=== PATIENT | female | born 1980 | race Caucasian/White ===

== ENCOUNTER 2017-07-04 12:44 | Emergency (ER) | payer OTHER ==
[2017-07-04 13:12] VITALS: BP 120/81
--- NOTE | 2017-07-04 14:41 | UC ---
Minor Trauma HPI - HPI Summary HPI Summary: 36 yo female was walking quickly down a hallway at work slipped on water landed on right side c/o right back>right elbow pain hx of back problems in past hx of right elbow tendonitis - History of Current Complaint Chief Complaint: UCUpperExtremity Stated Complaint: BACK AND ARM INJURY Time Seen by Provider: 07/04/17 14:29 Hx Obtained From: Patient Hx Last Menstrual Period: 06/25/2017 Onset/Duration: Sudden Onset Onset Of Pain: Immediate Severity Initially: Severe Severity Currently: Severe Pain Intensity: 7 Pain Scale Used: 0-10 Numeric Mechanism Of Injury: Fall From A Standing Position Aggravating Factor(s): Movement Alleviating Factor(s): Other: - tramadol - Allergies/Home Medications Allergies/Adverse Reactions: Allergies Allergy/AdvReac Type Severity Reaction Status Date / Time MS Penicillins [Penicillins] Allergy Severe Shortness Verified 07/04/17 12:59 of Breath MS Sumatriptan [From Imitrex] Allergy Severe Shortness Verified 07/04/17 12:59 of Breath MS Carbamazepine Allergy Rash And Verified 07/04/17 12:59 [From Tegretol] Itching Home Medications: Home Medications clonazePAM TAB(*) [Klonopin TAB(*)] 0.5 mg PO BID PRN MDD 1 07/04/17 [History Confirmed 07/04/17] PMH/Surg Hx/FS Hx/Imm Hx Previously Healthy: Yes Psychological History: Bipolar Disorder - Surgical History Surgical History: Yes Surgery Procedure, Year, and Place: Pt had a on - Social History Alcohol Use: Rare Substance Use Type: None Smoking Status (MU): Former Smoker Type: Cigarettes Amount Used/How Often: denies currently smoking/ smoked one cigarette one Have You Smoked in the Last Year: Yes When Did the Patient Quit Smoking/Using Tobacco: august 06, 8 years ago - Immunization History Most Recent Influenza Vaccination: 2015 Most Recent Tetanus Shot: 2017 Most Recent Pneumonia Vaccination: Never Review of Systems Constitutional: Negative Skin: Negative Eyes: Negative ENT: Negative Respiratory: Negative Cardiovascular: Negative Gastrointestinal: Negative Genitourinary: Negative Motor: Negative Neurovascular: Negative Musculoskeletal: Arthralgia Neurological: Negative Psychological: Negative Is Patient Immunocompromised?: No All Other Systems Reviewed And Are Negative: Yes Physical Exam Triage Information Reviewed: Yes Appearance: Well-Appearing, No Pain Distress, Well-Nourished Vital Signs: Initial Vital Signs Temp 98.2 F 07/04/17 13:02 Pulse 79 07/04/17 13:02 Resp 17 07/04/17 13:02 BP 120/81 07/04/17 13:02 Pulse Ox 100 07/04/17 13:02 Eyes: Positive: Conjunctiva Clear ENT: Positive: Hearing grossly normal. Negative: Nasal congestion, Nasal drainage, Trismus, Muffled voice, Hoarse voice Neck: Positive: Supple, Nontender Respiratory: Positive: Lungs clear, Normal breath sounds, No respiratory distress Cardiovascular: Positive: RRR, No Murmur Abdomen Description: Positive: Nontender. Negative: CVA Tenderness (R), CVA Tenderness (L) Bowel Sounds: Positive: Present Musculoskeletal: Positive: ROM Intact, No Edema Neurological: Positive: Alert Psychological Exam: Normal Skin Exam: Normal Diagnostics - Radiology No standard instances Xray Interpretation: No Acute Changes - right rib series Radiology Interpretation Completed By: Radiologist Minor Trauma Course/Dx - Differential Dx/Diagnosis Provider Diagnoses: right elbow and rib contusions. back strain. fall Discharge - Discharge Plan Condition: Stable Disposition: HOME Prescriptions: Naproxen Sodium [Naproxen Sodium 500 MG TAB] 500 mg PO BID PRN #30 tab PRN Reason: Pain traMADol TAB* [Ultram*] 50 mg PO Q6HR PRN #15 tab MDD 4 PRN Reason: Pain Forms: *Work Release Referrals: Prashant Rivas MD [Primary Care Provider] - Additional Instructions: rest recheck this weekend if you feel unable to return to full duty recheck next in one week if not 100% back to normal Images Front/Back of Body, Lg ([place]): 1 - tender 2 - tender lateral epicondyle. full ROM
--- NOTE | 2017-07-04 15:13 | RAD ---
HISTORY: Subacute trauma, right-sided rib pain COMPARISONS: None VIEWS: 7, Frontal view of the chest with frontal and oblique views of the right hemithorax. FINDINGS: There is no displaced rib fracture or pneumothorax. The visualized lungs are clear. IMPRESSION: NO DISPLACED RIB FRACTURE OR PNEUMOTHORAX
== END 2017-07-04 16:19 | disposition home or self-care (01) ==
LOC: UCEAST 12:44
DX: S50.01XA Contusion of right elbow, initial encounter (principal); X58.XXXA Exposure to other specified factors, initial encounter; S20.211A Contusion of right front wall of thorax, initial encounter; S23.3XXA Sprain of ligaments of thoracic spine, initial encounter; Z87.891 Personal history of nicotine dependence; W01.0XXA Fall on same level from slipping, tripping and stumbling without subsequent striking against object, initial encounter; Y92.89 Other specified places as the place of occurrence of the external cause
CPT/HCPCS: 99212; G0463

== ENCOUNTER 2017-10-10 20:37 | Inpatient (IN) | payer BC, OTHER ==
[2017-10-10] MEDS ORDERED: diPHENhydraMINE IV* 50 MG/ML 1 ml VIAL (BENADRYL) IM ONE (21:49)
[2017-10-10] MEDS ORDERED: Haloperidol INJ IV/IM* 5 MG/ML AMP IM ONE (21:49)
[2017-10-10] MEDS ORDERED: LORazepam INJ* 2 MG/ML 1 ML VIAL IM ONE (21:49)
[2017-10-11 00:59] LABS: ABS Basophils 0.1 10^3/ul (0-0.2); ABS Eosinophils 0 10^3/ul (0-0.6); ABS Lymphocytes 2.4 10^3/ul (1.0-4.8); ABS Monocytes 0.9 10^3/ul (0-0.8); ABS Neutrophils 5.3 10^3/ul (1.5-7.7); ABS Nucleated RBC 0 10^3/ul; Eosinophil % 0.4 % (0-6); Hematocrit 37 % (35-47); Hemoglobin 12.6 g/dl (12.0-16.0); Mean Corpuscular HGB Conc 34 g/dl (31-36); Mean Corpuscular Hemoglobin 32 pg (27-31); Mean Corpuscular Volume 94 fL (80-97); Mean Platelet Volume 8.4 um3 (7.4-10.4); Nucleated Red Blood Cells % 0.1; Platelet Count 242 10^3/ul (150-450); Red Blood Count 3.95 10^6/ul (4.0-5.4); Red Cell Distribution Width 13 % (10.5-15); White Blood Count 8.6 10^3/ul (3.5-10.8)
[2017-10-11 01:17] LABS: EGFR Non-African American 56.5 (>60)
--- NOTE | 2017-10-11 05:59 | ED ---
Mauro Lugo Rebecca, scribed for Tre Watson MD on 10/10/17 at 2131 . Psychiatric Complaint - HPI Summary HPI Summary: Pt is a 37 y/o F BIB police as a 941 after being found in the road. Upon arrival in the ED pt is hallucinating, having conversations with individuals who are not present, and having disconnected thoughts and speech. Oriented to person. Level 5 caveat - history is unobtainable due to current presentation. - History Of Current Complaint Chief Complaint: EDMentalHealth Time Seen by Provider: 10/10/17 20:53 Hx Obtained From: Medical Records Hx From Patient Unobtainable Due To: Other - Current presentation Hx Last Menstrual Period: 06/25/2017 Onset/Duration: Still Present Associated Signs And Symptoms: Positive: Hallucinating Related History: Positive For: Prior Psychiatric Issues - Anxiety, bipolar, acute psychosis - Allergies/Home Medications Allergies/Adverse Reactions: Allergies Allergy/AdvReac Type Severity Reaction Status Date / Time carbamazepine Allergy Rash And Verified 10/11/17 05:02 Itching Penicillins Allergy Shortness Verified 10/11/17 05:02 of Breath sumatriptan Allergy Shortness Verified 10/11/17 05:02 of Breath Home Medications: Home Medications clonazePAM TAB(*) [KlonoPIN TAB(*)] 0.5 mg PO BID PRN MDD 2 tablets 10/10/17 [ History Confirmed 10/10/17] PMH/Surg Hx/FS Hx/Imm Hx Endocrine/Hematology History: Denies: Hx Diabetes, Hx Thyroid Disease Cardiovascular History: Denies: Hx Hypertension Respiratory History: Reports: Hx Asthma - exercise, Hx Pneumonia Denies: Hx Chronic Obstructive Pulmonary Disease (COPD) GI History: Reports: Hx Gastroesophageal Reflux Disease - when I was 18 Denies: Hx Ulcer Sensory History: Reports: Hx Contacts or Glasses - reading glasses Opthamlomology History: Reports: Hx Contacts or Glasses - reading glasses Neurological History: Reports: Hx Headaches, Hx Migraine - "I have a substantial amount of calcium growing in my brain" Psychiatric History: Reports: Hx Anxiety, Hx Inpatient Treatment, Hx Community Mental Health Tx, Hx Bipolar Disorder, Other Psychiatric Issues/Disorders - hx of acute psychosis Denies: Hx Eating Disorder, Hx of Violent Episodes Against Others - Surgical History Surgery Procedure, Year, and Place: Pt had a on Infectious Disease History: Unable to Obtain/Confirm Infectious Disease History: Denies: Hx Hepatitis, Hx Human Immunodeficiency Virus (HIV), Traveled Outside the [place] in Last 30 Days - Family History Known Family History: Positive: Other - Anxiety, depression, alcohol abuse - Social History Alcohol Use: Rare Substance Use Type: Reports: None Smoking Status (MU): Former Smoker Type: Cigarettes Amount Used/How Often: denies currently smoking/ smoked one cigarette one Have You Smoked in the Last Year: Yes Review of Systems Negative: Fever Positive: Other - Hallucinating, disconnected thoughts and speech All Other Systems Reviewed And Are Negative: No - Comments Additional Review of Systems Comments: Level 5 caveat due to current presentation of symptoms. Physical Exam - Summary Physical Exam Summary: General: well-appearing, no pain distress Skin: color reflects adequate perfusion, dry Head: normal Eyes: EOMI, TAJ ENT: normal Neck: supple, nontender Respiratory: no respiratory distress Cardiovascular: RRR Musculoskeletal: normal, moves all extremities in a grossly normal manner Neurological: sensory/motor intact, alert and oriented to person Psychological: delusional speech, talking about individuals not here Triage Information Reviewed: Yes Vital Signs On Initial Exam: Initial Vitals Temp Pulse Resp BP Pulse Ox 98.8 F 121 22 140/106 96 10/10/17 20:43 10/10/17 20:43 10/10/17 20:43 10/10/17 20:43 10/10/17 20:43 Vital Signs Reviewed: Yes Completion Of Physical Exam Limited Due To: Other - Level 5 caveat - current presentation of symptoms. Diagnostics - Vital Signs Vital Signs Temp Pulse Resp BP Pulse Ox 10/10/17 20:43 98.8 F 121 22 140/106 96 - Laboratory Lab Results: Lab Results 10/11/17 10/11/17 Range/Units 00:48 00:49 WBC 8.6 (3.5-10.8) 10^3/ul RBC 3.95 L (4.0-5.4) 10^6/ul Hgb 12.6 (12.0-16.0) g/dl Hct 37 (35-47) % MCV 94 (80-97) fL MCH 32 H (27-31) pg MCHC 34 (31-36) g/dl RDW 13 (10.5-15) % Plt Count 242 (150-450) 10^3/ul MPV 8.4 (7.4-10.4) um3 Neut % (Auto) 60.8 (38-83) % Lymph % (Auto) 28.0 (25-47) % [place] % (Auto) 10.1 H (0-7) % Eos % (Auto) 0.4 (0-6) % Baso % (Auto) 0.7 (0-2) % Absolute Neuts (auto) 5.3 (1.5-7.7) 10^3/ul Absolute Lymphs (auto) 2.4 (1.0-4.8) 10^3/ul Absolute Monos (auto) 0.9 H (0-0.8) 10^3/ul Absolute Eos (auto) 0 (0-0.6) 10^3/ul Absolute Basos (auto) 0.1 (0-0.2) 10^3/ul Absolute Nucleated RBC 0 10^3/ul Nucleated RBC % 0.1 Sodium 139 (139-145) mmol/L Potassium 3.3 L (3.5-5.0) mmol/L Chloride 105 (101-111) mmol/L Carbon Dioxide 25 (22-32) mmol/L Anion Gap 9 (2-11) mmol/L BUN 14 (6-24) mg/dL Creatinine 1.09 H (0.51-0.95) mg/dL Est GFR ( Amer) 72.6 (>60) Est GFR (Non-Af Amer) 56.5 (>60) BUN/Creatinine Ratio 12.8 (8-20) Glucose 99 (70-100) mg/dL Calcium 9.2 (8.6-10.3) mg/dL Total Bilirubin 0.60 (0.2-1.0) mg/dL AST 40 H (13-39) U/L ALT 24 (7-52) U/L Alkaline Phosphatase 47 (34-104) U/L Total Protein 7.4 (6.4-8.9) g/dL Albumin 4.6 (3.2-5.2) g/dL Globulin 2.8 (2-4) g/dL Albumin/Globulin Ratio 1.6 (1-3) TSH 2.72 (0.34-5.60) mcIU/mL Beta HCG, Quant < 0.60 mIU/mL Salicylates < 2.50 (<30) mg/dL Acetaminophen < 15 mcg/mL Serum Alcohol < 10 (<10) mg/dL Result Diagrams: 10/11/17 00:48 10/11/17 00:49 Lab Statement: Any lab studies that have been ordered have been reviewed, and results considered in the medical decision making process. Course/Dx - Course Course Of Treatment: MHE AND DISPOSITION PENDING AT SHIFT CHANGE Assessment/Plan: Medications reviewed. Allergies noted. - Differential Dx/Clinical Impression Provider Diagnosis: Mental health problem Discharge - Sign-Out/Discharge Documenting (check all that apply): Sign-Out Patient Signing out patient TO: Jules Domingo - Awaiting health clearance and MHE - Discharge Plan Condition: Stable Dis[place] [place] [place]errals: Prashant Rivas MD [Primary Care Provider] - - Billing Disposition and Condition Condition: STABLE Disposition: [facility] [place] The documentation as recorded by the Mauro villarreal Rebecca accurately reflects the service I personally performed and the decisions made by me, Tre Watson MD.
[2017-10-11] MEDS ORDERED: chlorproMAZINE TAB* 100 MG PO PRN (12:59)
[2017-10-11] MEDS ORDERED: chlorproMAZINE TAB* 50 MG PO PRN (14:00)
[2017-10-12] MEDS: Acetaminophen TAB* 325 MG PO PRN ×3 (04:03→14:03)
[2017-10-12] MEDS: Vitamin THERAPEUTIC TAB PO SCH (09:16)
[2017-10-12] MEDS: Prazosin CAP* 1 MG PO SCH ×2 (12:11→21:09)
[2017-10-12 16:39] LABS: Urine Appearance Clear; Urine Blood 1+ (Negative); Urine Color Straw; Urine Ketones Negative (Negative); Urine Protein Negative (Negative); Urine Specific Gravity 1.004 (1.010-1.030); Urine Urobilinogen Negative (Negative)
[2017-10-12] MEDS: clonazePAM TAB(*) 0.5 MG PO PRN (17:48)
--- NOTE | 2017-10-12 23:05 | HP ---
HISTORY AND PHYSICAL: DATE OF ADMISSION: 10/11/17. PRIMARY CARE PROVIDER: Dr. Prashant Rivas. SUPERVISING PSYCHIATRIST: Dr. Santos Thornton.* (DICTATED BY EDWARD PRIETO NP) JUSTIFICATION FOR ADMISSION: The patient presented to the emergency department via police due to disorganized and psychotic behavior in the community. Upon arrival to the ED, she was combative and agitated requiring emergency IM medications. The patient merits hospitalization for immediate safety and stabilization. CHIEF COMPLAINT: "I'm doing okay considering." HISTORY OF PRESENT ILLNESS: The patient reports significant stressors in the last week. She states that she cannot see her friend and plans to meet up with him. Then she did not know what to do with the remainder of her aunt's ashes, becomes tearful when talking about this because she is in overstimulated , hypervigilant, and hypersensitive. She is mildly insightful in regards to presentation prior to admission. She minimizes amado and over endorses PTSD symptoms. She states that she has been seeing a therapist at [facility], Shira Barney. She previously saw Fernanda Colindres NP and is considering being transferred to psychiatrist, Dr. Vidal. She states that she sees her primary care provider, Dr. Rivas, who prescribed clonazepam for her. She states that she and her therapist, Shira have discussed the possibility of her continuing with Dr. Rivas if she does not need to be seen by the psychiatrist at [facility]. The patient reports significant side effects related to haloperidol that she was given while in the emergency room. She states this medication often makes her sick and she was observed vomiting on the unit. The patient states she slept for approximately 5 hours last night and endorses nightmares. Other than that, it is difficult to get a recent history from her because she is tangential. However, she is cooperative and easy to establish a rapport. She is noted to have a . Of note, she hit her head at work when opening a door recently and 2 days ago, she was standing on a chair hard floor and hit her head. The patient denies AV hallucinations. There were no overt delusions. The patient has denied obsessions or phobias. She denies SI, HI, or . She presents as unable to care for herself in a less restrictive environment. PAST PSYCHIATRIC HISTORY: Liz has been hospitalized numerous times since 2004. She was hospitalized as a teenager at [facility] in [place]. She was hospitalized twice in 2016 and four other times since 2003. Since then engaged in outpatient treatment at [facility] for many years, Fernanda Colindres, nurse practitioner and therapist, Shira Barney. PAST PSYCHIATRIC DIAGNOSES: Bipolar disorder, PTSD, adjustment disorder, cannabis use disorder. Prior psych problems include many untoward effects for the following trials, quetiapine, Tegretol, prazosin, Depakote, haloperidol, lithium, Risperdal. It is well documented she is dismissive of medications to treat amaod. The patient denies history of suicide or self harm. She is predominantly hospitalized when she is a vulnerable in the community because of her manic behaviors. LEGAL HISTORY: The patient denies. PAST MEDICAL HISTORY: 1. Back injury. 2. Migraine headaches. 3. She denies seizure history. PAST SURGICAL HISTORY: The patient denies surgical history. CURRENT MEDICATIONS: Clonazepam 0.5 mg b.i.d. p.r.n. anxiety tablets, the patient reports she primarily takes this every few days. ALLERGIES: CARBAMAZEPINE, PENICILLIN, and SUMATRIPTAN. [employer] HAND HISTORY: LMP, one week ago. FAMILY PSYCHIATRIC HISTORY: Aunt with bipolar disorder. SOCIAL HISTORY: As the patient has been here multiple times, I will just give a brief update. 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 SUBSTANCE USE HISTORY: The patient reports remote history of abuse of hallucinogens. She denies alcohol abuse. We are awaiting urine drug screen. REVIEW OF SYSTEMS: Constitutional: Negative. No fevers, chills, or fatigue. ENT: Negative. Cardiovascular: The patient reports chest wall pain on inspiration. Denies palpitations. Respiratory: Negative. Shortness of breath or cough. Genitourinary: Negative. Musculoskeletal: Negative. Neurological: negative. PHYSICAL EXAMINATION The patient declines physical exam. This was recently done in the emergency department, so we deferred at this time. VITAL SIGNS: T 97.5, P 75, respirations 18, O2 saturation 100%. This morning her BP was 87/54, yesterday it was 140/98. LABORATORY DATA: Labs upon arrival to the emergency department, CBC is noted to have low RBC of 3.95, . Patient's CMP, potassium low at 3.3, hemoglobin A1c normal at 5.2, lipid panel within normal limits. TSH normal at 2.72, negative. Urinalysis is back and has 1+ bacteria, 1+ blood, likely a contaminated specimen. Her urine drug screen is pending. Looks like acetaminophen and alcohol are negative. MENTAL STATUS EXAM: Liz is a 37-year-old white female with dirty blonde hair and adequate ADLs, and she appears stated age. She is distractible, but otherwise cooperative and jovial. She is labile during the interview, bursting into tears when talking about her aunt's ashes. She reports her mood is good. Her affect is congruent and upbeat. Insight and judgement are poor. She minimizes bipolar disorder and behavior exhibitive of amado. She is alert and oriented x3. Her speech is loud volume with rapid rate. She is articulate. Thought process as stated above with some content of thought. She denies AV hallucinations. She denies SI or HI. Fund of knowledge is adequate. DIAGNOSES: 1. Bipolar I disorder. 2. Post traumatic stress disorder. ASSESSMENT: Liz is a 37-year-old female known to this unit due to prior hospitalizations with amado with psychotic features. She presented to the emergency department a few days ago with similar presentation. While awaiting for bed availability, the patient was . The patient continues to present as hypomanic with little to no insight to the need for treatment. She reports prazosin has been helpful in the past. We will use this and clonazepam as needed. The patient will be offered antipsychotics and mood stabilizers. PLAN: Admit to adult behavioral service unit on status. Code status is full. The patient is already been decreased to 30 minute observation and allowed staff pass and computer use due to her behavioral control. Per usual she will be encouraged to participate in supportive milieu, individual sessions with staff and psychoeducational groups. Per usual, discharge planning will include outpatient providers. estimated length of stay is 5 to 7 days. EWDARD PRIETO NP [id number]/[facility] #: [id number] PAM
[2017-10-13] MEDS: clonazePAM TAB(*) 0.5 MG PO PRN ×5 (00:35→19:20)
[2017-10-13] MEDS: Acetaminophen TAB* 325 MG PO PRN ×2 (01:25→19:23)
[2017-10-13] MEDS: Nicotine Inhaler* 10 MG AMP INH PRN (05:00)
[2017-10-13] MEDS ORDERED: Mouth Piece, Nicotine* 1 EACH CARTRIDGE ONE (05:01)
[2017-10-13] MEDS: Prazosin CAP* 1 MG PO SCH ×2 (08:56→20:46)
[2017-10-13] MEDS: Vitamin THERAPEUTIC TAB PO SCH (08:56)
[2017-10-13] MEDS: Saline NASAL SPRAY 0.65%* BTL BOTH NARES PRN ×4 (08:57→22:34)
[2017-10-14] MEDS: clonazePAM TAB(*) 0.5 MG PO PRN ×2 (07:05→19:12)
[2017-10-14] MEDS: Prazosin CAP* 1 MG PO SCH ×2 (08:34→22:04)
[2017-10-14] MEDS: Vitamin THERAPEUTIC TAB PO SCH (08:34)
[2017-10-14] MEDS: Saline NASAL SPRAY 0.65%* BTL BOTH NARES PRN ×2 (11:28→17:10)
[2017-10-14] MEDS: Acetaminophen TAB* 325 MG PO PRN ×2 (11:29→22:05)
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
[2017-10-15] MEDS: clonazePAM TAB(*) 0.5 MG PO PRN ×3 (04:25→19:19)
[2017-10-15] MEDS: Vitamin THERAPEUTIC TAB PO SCH (07:53)
[2017-10-15] MEDS: Prazosin CAP* 1 MG PO SCH ×2 (07:54→21:48)
[2017-10-15] MEDS: Saline NASAL SPRAY 0.65%* BTL BOTH NARES PRN ×3 (07:56→19:22)
[2017-10-15] MEDS: Acetaminophen TAB* 325 MG PO PRN ×2 (07:56→14:01)
--- NOTE | 2017-10-15 16:01 | RAD ---
INDICATION: Hallucinations. Bipolar disorder. COMPARISON: None TECHNIQUE: sagittal T1 FLAIR, axial diffusion, axial T1 FLAIR, axial T2, axial T2 FLAIR, and SWI images were acquired. FINDINGS: Craniocervical junction: The craniocervical junction appears normal. Ventricles/sulci: The ventricles and cisterns are normal in size and configuration for age. Brain parenchyma: There are no focal parenchymal abnormalities. There is no evidence of intracranial mass or mass effect. The diffusion weighted images show no evidence of acute ischemia. Intracranial hemorrhage: There is no intracranial hemorrhage. Extra-axial spaces: There are no extra-axial fluid collections or masses. Orbits: There are no MR abnormalities of the orbital structures. Paranasal sinuses/mastoid: The paranasal sinuses are clear. The mastoid air cells are well aerated.. Vascular: No abnormalities are seen. Other: None IMPRESSION: NEGATIVE EXAMINATION.
--- NOTE | 2017-10-15 16:11 | PN ---
Subjective - Subjective Date of Service: 10/15/17 Service Type: 75899 Hosp care 35 min high complexity Subjective: Met with julio multiple times throughout the day. She is hyperverbal, intrusive , distractible and tangential. She discusses setting boundaries with on/off boyfriend, Fly, over the weekend. She goes on to describe prioritizing co- parenting relationship with Medhat and their son, Tk. Patient inquires about bipolar disorder and PTSD. Encouraged to identify symptoms to treat, rather than diagnosis. Objective - Appearance Appearance: Well Developed/Nourished, Healthy Appearing Dysmorphic Features: No Hygiene: Normal Grooming: Well Kept - Behavior Psychomotor Activities: Normal Exhibits Abnormal Movement: No - Attitude and Relatedness Attitude and Relatedness: Superficially Cooperative Eye Contact: Good - Speech Quality: Pressured Latencies: Normal Quantity: Copious - Mood Patient's Decription of Mood: "Good" - Affect Observed Affect: Expansive Affect Consistent with: Euphoria - Thought Process Patient's Thought Process: Tangential, Over Inclusive Thought Content: No Passive Wish, No Suicidal Planning, No Homicidal Ideation, No Paranoid Ideation - Sensorium Experiencing Hallucinations: No, Sensorium is Clear Type of Hallucinations: Visual: No, Auditory: No, Command: No - Level of Consciousness Level of Consciousness: Alert Orientation: Yes Intact, Yes Orientated to Time, Yes Orientated to Place, Yes Orientated to Person - Impulse Control Impulse Control: Poor - Insight and Judgement Insight and Judgement: Poor - Group Participation Particating in Group Activities: No - Medication Management Medication Management Adherence: Partial Assessment - Assessment Merits Inpatient Hospitalization: For Immediate Safety, For Stabilization, Consolidate Improvements, Pending Safe DC Plan Inpatient DSM-V Dx: F31.2 Clinical Impression: 37yo white female with history of PTSD and bipolar d/o who presented to ED via IPD in manic state. Plan - Plan Treatment Plan: Name: JULIO MCCORMACK Birthdate: 1980 [id number] continue acute intensive psychiatric treatment. continue to offer mood stabilizing medications. treatment meeting with patient's co-parent, Medhat, tentative for 10/16/17. Continued Medication Management: Different Medication Medications: Current Medications Acetaminophen (Tylenol Tab*) 650 mg PO Q4H PRN PRN Reason: for pain; or Temp >101 F Last Admin: 10/15/17 14:01 Dose: 650 mg Al Hydrox/Mg Hydrox/Simethicone (Maalox Plus*) 30 ml PO Q4H PRN PRN Reason: INDIGESTION Chlorpromazine HCl (Thorazine Tab*) 100 mg PO Q6H PRN PRN Reason: AGITATION Clonazepam (Klonopin Tab(*)) 0.25 mg PO TID PRN PRN Reason: ANXIETY Last Admin: 10/15/17 11:20 Dose: 0.25 mg Multivitamins (Theragran Tab*) 1 tab PO DAILY [facility] Last Admin: 10/15/17 07:53 Dose: 1 tab Nicotine (Nicotine Inhaler*) 10 mg INH Q2H PRN PRN Reason: CRAVING Last Admin: 10/13/17 05:00 Dose: 10 mg Prazosin HCl (Minipress Cap*) 1 mg PO BID [place] Last Admin: 10/15/17 07:54 Dose: 1 mg Sodium Chloride (Sodium Chloride 0.65% Nasal [place]*) 1 spray BOTH NARES Q4H PRN PRN Reason: dryness Last Admin: 10/15/17 13:59 Dose: 1 spray - Discharge Plan Discharge Plan: Outpatient Follow Up Out[facility]
[2017-10-16] MEDS: clonazePAM TAB(*) 0.5 MG PO PRN ×5 (03:10→21:47)
[2017-10-16] MEDS: Acetaminophen TAB* 325 MG PO PRN ×4 (03:10→21:50)
[2017-10-16] MEDS: Vitamin THERAPEUTIC TAB PO SCH (08:12)
[2017-10-16] MEDS: Prazosin CAP* 1 MG PO SCH ×2 (08:12→21:45)
[2017-10-16] MEDS: Saline NASAL SPRAY 0.65%* BTL BOTH NARES PRN ×2 (10:02→18:16)
[2017-10-16] MEDS ORDERED: Mouth Piece, Nicotine* 1 EACH CARTRIDGE ONE (11:47)
--- NOTE | 2017-10-16 13:55 | PN ---
Subjective - Subjective Date of Service: 10/16/17 Service Type: 82038 Hosp care 35 min high complexity Subjective: Patient and her co-parent, Medhat met with Richa Fajardo LMSW and public relations writer for treatment planning meeting. Patient irritable, labile, disorganized. Medhat was irritable at times and advocating strongly for patient's discharge. Pt attributes current symptoms to being hospitalized. She states that memories of previous hospitalization are impacting her greatly. She goes on in great detail about various policies and procedures that are ineffective and blames staff for "being on a power trip." She declines offer to discuss options for other medications to treat symptoms. On the unit, patient is intrusive and hyperverbal. She attempts to portray herself as a staff member due to knowing another patient from her place of employment. Objective - Appearance Appearance: Well Developed/Nourished Dysmorphic Features: Yes Hygiene: Normal Grooming: Well Kept - Behavior Psychomotor Activities: Normal Exhibits Abnormal Movement: No - Attitude and Relatedness Attitude and Relatedness: Irritable Eye Contact: Good - Speech Quality: Pressured Latencies: Normal Quantity: Copious - Mood Patient's Decription of Mood: "Angry" - Affect Observed Affect: Expansive Affect Consistent with: Euphoria - Thought Process Patient's Thought Process: Tangential, Over Inclusive Thought Content: No Passive Wish, No Suicidal Planning, No Homicidal Ideation, No Paranoid Ideation - Sensorium Experiencing Hallucinations: No, Sensorium is Clear Type of Hallucinations: Visual: No, Auditory: No, Command: No - Level of Consciousness Level of Consciousness: Alert Orientation: Yes Intact, Yes Orientated to Time, Yes Orientated to Place, Yes Orientated to Person - Impulse Control Impulse Control: Poor - Insight and Judgement Insight and Judgement: Poor - Group Participation Particating in Group Activities: No - Medication Management Medication Management Adherence: Partial Assessment - Assessment Inpatient DSM-V Dx: F31.2 Clinical Impression: 37yo white female with history of PTSD and bipolar d/o who presented to ED via IPD in manic state. Plan - Plan Treatment Plan: Name: JULIO MCCORMACK Birthdate: 1980 [id number] continue acute intensive psychiatric treatment. increase clonazepam. patient declines other psychiatric medications. discharge planning to include outpatient providers. Continued Medication Management: Consider Medication Medications: Current Medications Acetaminophen (Tylenol Tab*) 650 mg PO Q4H PRN PRN Reason: for pain; or Temp >101 F Last Admin: 10/16/17 08:12 Dose: 650 mg Al Hydrox/Mg Hydrox/Simethicone (Maalox Plus*) 30 ml PO Q4H PRN PRN Reason: INDIGESTION Chlorpromazine HCl (Thorazine Tab*) 100 mg PO Q6H PRN PRN Reason: AGITATION Clonazepam (Klonopin Tab(*)) 0.5 mg PO Q6H PRN PRN Reason: ANXIETY Multivitamins (Theragran Tab*) 1 tab PO DAILY [place] Last Admin: 10/16/17 08:12 Dose: 1 tab Nicotine (Nicotine Inhaler*) 10 mg INH Q2H PRN PRN Reason: CRAVING Last Admin: 10/13/17 05:00 Dose: 10 mg Prazosin HCl (Minipress Cap*) 1 mg PO BID [place] Last Admin: 10/16/17 08:12 Dose: 1 mg Sodium Chloride (Sodium Chloride 0.65% Nasal [place]*) 1 spray BOTH NARES Q4H PRN PRN Reason: dryness Last Admin: 10/16/17 10:02 Dose: 1 spray - Discharge Plan Discharge Plan: Outpatient Follow Up Outpatient Program: [facility]
[2017-10-17] MEDS: clonazePAM TAB(*) 0.5 MG PO PRN ×3 (02:35→17:15)
[2017-10-17] MEDS: Acetaminophen TAB* 325 MG PO PRN ×3 (02:35→22:18)
[2017-10-17] MEDS: Prazosin CAP* 1 MG PO SCH ×2 (07:52→22:17)
[2017-10-17] MEDS: Vitamin THERAPEUTIC TAB PO SCH (07:52)
[2017-10-17] MEDS: Saline NASAL SPRAY 0.65%* BTL BOTH NARES PRN ×2 (13:16→19:06)
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
[2017-10-18] MEDS: clonazePAM TAB(*) 0.5 MG PO PRN ×3 (01:04→18:13)
[2017-10-18] MEDS: Saline NASAL SPRAY 0.65%* BTL BOTH NARES PRN ×4 (01:05→17:04)
[2017-10-18] MEDS: Acetaminophen TAB* 325 MG PO PRN ×3 (04:58→19:33)
[2017-10-18] MEDS: Vitamin THERAPEUTIC TAB PO SCH (08:22)
[2017-10-18] MEDS: Prazosin CAP* 1 MG PO SCH (08:22)
[2017-10-18] MEDS ORDERED: Prazosin CAP* 1 MG PO SCH (08:46)
[2017-10-18] MEDS ORDERED: Lurasidone(*) 20 MG TAB PO ONE (11:00)
--- NOTE | 2017-10-18 16:27 | PN ---
Subjective - Subjective Date of Service: 10/18/17 Service Type: 59699 Hosp care 25 min moderate complexity Subjective: No change in patient presentation. She continues to exhibit lability, intrusiveness, and irritability. She is noted to have poor boundaries with male peer. Patient continues to be defensive when presented with information about symptoms. She agrees to trial of lurasidone. Objective - Appearance Appearance: Well Developed/Nourished Dysmorphic Features: Yes Hygiene: Normal Grooming: Fairly Well Kept - Behavior Psychomotor Activities: Normal Exhibits Abnormal Movement: No - Attitude and Relatedness Attitude and Relatedness: Irritable Eye Contact: Good - Speech Quality: Pressured Latencies: Normal Quantity: Copious - Mood Patient's Decription of Mood: "Upset" - Affect Observed Affect: Labile Affect Consistent with: Euphoria - Thought Process Patient's Thought Process: Tangential, Circumstantial, Over Inclusive Thought Content: Yes Paranoid Ideation, No Passive Wish, No Suicidal Planning, No Homicidal Ideation - Sensorium Experiencing Hallucinations: No, Sensorium is Clear Type of Hallucinations: Visual: No, Auditory: No, Command: No - Level of Consciousness Level of Consciousness: Alert Orientation: Yes Intact, Yes Orientated to Time, Yes Orientated to Place, Yes Orientated to Person - Impulse Control Impulse Control: Impaired - Insight and Judgement Insight and Judgement: Impaired - Group Participation Particating in Group Activities: No - Medication Management Medication Management Adherence: Partial Assessment - Assessment Merits Inpatient Hospitalization: For Immediate Safety, For Stabilization Inpatient DSM-V Dx: F31.2 Clinical Impression: 37yo white female with history of PTSD and bipolar d/o who presented to ED via IPD in manic state. Plan - Plan Treatment Plan: Name: JULIO MCCORMACK Birthdate: 1980 [id number] continue acute intensive psychiatric treatment. continue clonazepam, change prazosin to guanfacine for impulse control. start titration of Latuda. discharge planning to include outpatient providers. Continued Medication Management: Different Medication Medications: Current Medications Acetaminophen (Tylenol Tab*) 650 mg PO Q4H PRN PRN Reason: for pain; or Temp >101 F Last Admin: 10/18/17 14:23 Dose: 650 mg Al Hydrox/Mg Hydrox/Simethicone (Maalox Plus*) 30 ml PO Q4H PRN PRN Reason: INDIGESTION Chlorpromazine HCl (Thorazine Tab*) 100 mg PO Q6H PRN PRN Reason: AGITATION Clonazepam (Klonopin Tab(*)) 0.5 mg PO Q6H PRN PRN Reason: ANXIETY Last Admin: 10/18/17 11:50 Dose: 0.5 mg Guanfacine HCl (Tenex Tab*) 1 mg PO BID [place] Lurasidone HCl (Latuda) 20 mg PO 1700 [place] Multivitamins (Theragran Tab*) 1 tab PO DAILY [place] Last Admin: 10/18/17 08:22 Dose: 1 tab Nicotine (Nicotine Inhaler*) 10 mg INH Q2H PRN PRN Reason: CRAVING Last Admin: 10/13/17 05:00 Dose: 10 mg Sodium Chloride (Sodium Chloride 0.65% Nasal [place]*) 1 spray BOTH NARES Q4H PRN PRN Reason: dryness Last Admin: 10/18/17 13:13 Dose: 1 spray - Discharge Plan Discharge Plan: Outpatient Follow Up Outpatient Program: [facility]
[2017-10-18] MEDS ORDERED: Lurasidone(*) 20 MG TAB PO SCH (17:00)
[2017-10-18] MEDS: guanFACINE TAB* 1 MG PO SCH (21:15)
[2017-10-19] MEDS: clonazePAM TAB(*) 0.5 MG PO PRN ×2 (00:42→08:43)
[2017-10-19] MEDS: Acetaminophen TAB* 325 MG PO PRN ×3 (00:42→19:29)
--- NOTE | 2017-10-19 07:42 | PN ---
[facility]: Group Therapy Note - Service Type Service Type: 05534 Group Psychotherapy - Medication Education Group: Patient presented as disorganized and disruptive in discussion and needed repeated redirection to attend to presented materials. Patient receptive to redirection when monopolizing group.
[2017-10-19] MEDS: guanFACINE TAB* 1 MG PO SCH ×2 (08:39→21:02)
[2017-10-19] MEDS: Vitamin THERAPEUTIC TAB PO SCH (08:39)
[2017-10-19] MEDS: Saline NASAL SPRAY 0.65%* BTL BOTH NARES PRN ×2 (08:45→19:29)
[2017-10-19] MEDS ORDERED: Lurasidone(*) 40 MG TAB PO SCH (11:33)
[2017-10-19 16:26] LABS: Urine Appearance Clear; Urine Blood Negative (Negative); Urine Color Yellow; Urine Ketones Negative (Negative); Urine Protein Negative (Negative); Urine Specific Gravity 1.012 (1.010-1.030); Urine Urobilinogen Negative (Negative)
[2017-10-19] MEDS: LORazepam TAB(*) 1 MG PO PRN ×2 (17:22→21:03)
--- NOTE | 2017-10-19 18:04 | PN ---
Subjective - Subjective Service Type: 30616 Hosp care 25 min moderate complexity Subjective: Patient continues to exhibit poor impulse control, lability, disorganization. Due to collateral from coworkers, computer privileges were removed. Patient utilized internet radio in comfort room to email persons. Therefore, she was decreased to q15min observation and comfort room privileges removed. Patient agreeable to current medication regimen despite feeling "drunk" and concerns of physical side effects. She has multiple somatic complaints of pain in various regions of abdomen. Patient declined offer of imaging. She reports her urine is "neon green" in color and accepted offer of repeat UA. Will also obtain repeat CMP in am. Objective - Appearance Appearance: Well Developed/Nourished Dysmorphic Features: Yes Hygiene: Normal Grooming: Fairly Well Kept - Behavior Psychomotor Activities: Normal Exhibits Abnormal Movement: No - Attitude and Relatedness Attitude and Relatedness: Needy Eye Contact: Good - Speech Quality: Pressured Latencies: Normal Quantity: Copious - Mood Patient's Decription of Mood: "vulernable" - Affect Observed Affect: Labile Affect Consistent with: Euphoria - Thought Process Patient's Thought Process: Tangential, Circumstantial, Over Inclusive Thought Content: No Passive Wish, No Suicidal Planning, No Homicidal Ideation, No Paranoid Ideation - Sensorium Experiencing Hallucinations: No, Sensorium is Clear Type of Hallucinations: Visual: No, Auditory: No, Command: No - Level of Consciousness Level of Consciousness: Alert Orientation: Yes Intact, Yes Orientated to Time, Yes Orientated to Place, Yes Orientated to Person - Impulse Control Impulse Control: Impaired - Insight and Judgement Insight and Judgement: Poor - Group Participation Particating in Group Activities: No - Medication Management Medication Management Adherence: Yes Assessment - Assessment Merits Inpatient Hospitalization: For Immediate Safety, For Stabilization, Consolidate Improvements, Pending Safe DC Plan Inpatient DSM-V Dx: F31.2 Clinical Impression: 37yo white female with history of PTSD and bipolar d/o who presented to ED via IPD in manic state. Plan - Plan Treatment Plan: Name: JULIO MCCORMACK Birthdate: 1980 [id number] continue acute intensive psychiatric treatment. increase observation to q15min and hold computer/comfort room privileges. change clonazepam to lorazepam, continue guanfacine for impulse control. continue titration of Latuda. obtain repeat UA and CMP. discharge planning to include outpatient providers. Medications: Current Medications Acetaminophen (Tylenol Tab*) 650 mg PO Q4H PRN PRN Reason: for pain; or Temp >101 F Last Admin: 10/19/17 08:42 Dose: 650 mg Al Hydrox/Mg Hydrox/Simethicone (Maalox Plus*) 30 ml PO Q4H PRN PRN Reason: INDIGESTION Albuterol (Ventolin Hfa Inhaler*) 2 puff INH Q6H PRN PRN Reason: SOB/WHEEZING Chlorpromazine HCl (Thorazine Tab*) 100 mg PO Q6H PRN PRN Reason: AGITATION Guanfacine HCl (Tenex Tab*) 1 mg PO BID [place] Last Admin: 10/19/17 08:39 Dose: 1 mg Lorazepam (Ativan Tab(*)) 1 mg PO Q4H PRN PRN Reason: ANXIETY Last Admin: 10/19/17 17:22 Dose: 1 mg Lurasidone HCl (Latuda) 40 mg PO 1700 [place] Stop: 10/19/17 19:00 Last Admin: 10/19/17 17:23 Dose: 40 mg Lurasidone HCl (Latuda) 60 mg PO 1700 [place] Multivitamins (Theragran Tab*) 1 tab PO DAILY [place] Last Admin: 10/19/17 08:39 Dose: 1 tab Nicotine (Nicotine Inhaler*) 10 mg INH Q2H PRN PRN Reason: CRAVING Last Admin: 10/13/17 05:00 Dose: 10 mg Sodium Chloride (Sodium Chloride 0.65% Nasal [place]*) 1 spray BOTH NARES Q4H PRN PRN Reason: dryness Last Admin: 10/19/17 08:45 Dose: 1 spray - Discharge Plan Discharge Plan: Outpatient Follow Up Outpatient Program: [facility]
[2017-10-19] MEDS: Albuterol HFA INHALER* 8 gm MDI INH PRN (19:25)
[2017-10-20] MEDS: LORazepam TAB(*) 1 MG PO PRN ×4 (04:42→23:06)
[2017-10-20] MEDS: Acetaminophen TAB* 325 MG PO PRN ×3 (04:48→15:36)
[2017-10-20] MEDS: Albuterol HFA INHALER* 8 gm MDI INH PRN ×2 (04:48→15:35)
[2017-10-20] MEDS: Vitamin THERAPEUTIC TAB PO SCH (09:10)
[2017-10-20] MEDS: guanFACINE TAB* 1 MG PO SCH ×2 (09:10→20:37)
[2017-10-20] MEDS: Saline NASAL SPRAY 0.65%* BTL BOTH NARES PRN ×2 (09:12→15:36)
[2017-10-20 09:37] LABS: EGFR Non-African American 75.3 (>60)
[2017-10-20] MEDS ORDERED: chlorproMAZINE TAB* 100 MG PO PRN (15:51)
[2017-10-20] MEDS ORDERED: Lurasidone(*) 80 MG TAB PO SCH (17:00)
[2017-10-21] MEDS: Acetaminophen TAB* 325 MG PO PRN ×2 (01:17→04:38)
[2017-10-21] MEDS: Albuterol HFA INHALER* 8 gm MDI INH PRN ×3 (01:18→14:20)
[2017-10-21] MEDS: Saline NASAL SPRAY 0.65%* BTL BOTH NARES PRN ×3 (01:18→16:57)
[2017-10-21] MEDS: Al Hydrox/Mg Hydrox/Simet LIQ* 30 ML UDC PO PRN ×2 (01:38→09:18)
[2017-10-21] MEDS: LORazepam TAB(*) 1 MG PO PRN ×2 (04:38→14:19)
[2017-10-21] MEDS: guanFACINE TAB* 1 MG PO SCH ×2 (09:01→20:27)
[2017-10-21] MEDS: Vitamin THERAPEUTIC TAB PO SCH (09:01)
[2017-10-21] MEDS: Nicotine Inhaler* 10 MG AMP INH PRN (15:18)
[2017-10-21] MEDS ORDERED: Lurasidone(*) 60 MG TAB PO SCH (17:00)
[2017-10-22] MEDS: LORazepam TAB(*) 1 MG PO PRN ×5 (00:44→23:15)
[2017-10-22] MEDS: Acetaminophen TAB* 325 MG PO PRN ×2 (00:44→08:05)
[2017-10-22] MEDS: Saline NASAL SPRAY 0.65%* BTL BOTH NARES PRN ×3 (00:44→15:18)
[2017-10-22] MEDS: Albuterol HFA INHALER* 8 gm MDI INH PRN ×3 (00:45→11:37)
[2017-10-22] MEDS: guanFACINE TAB* 1 MG PO SCH (08:01)
[2017-10-22] MEDS: Vitamin THERAPEUTIC TAB PO SCH (08:01)
[2017-10-22] MEDS: Al Hydrox/Mg Hydrox/Simet LIQ* 30 ML UDC PO PRN (11:34)
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
--- NOTE | 2017-10-22 16:53 | PN ---
Subjective - Subjective Service Type: 03994 Hosp care 25 min moderate complexity Subjective: Over the weekend, patient has been expressing multiple somatic complaints and attributing to new medication, lurasidone. She continues to be elevated and not sleeping more than a few hours. During interview this morning, patient is calm and in behavioral control. She is receptive to answers of her questions. she requests to take lurasidone later due to sedation effect. She states nightmares are worsened and agrees to return to prazosin instead of guanfacine. Patient asks to be allowed to use computer and comfort room. Status Controller and Richa Fajardo LMSW agree to reinstate these privileges in order promote evidence of improved organization and impulsivity. Objective - Appearance Appearance: Well Developed/Nourished Dysmorphic Features: No Hygiene: Normal Grooming: Well Kept - Behavior Psychomotor Activities: Normal Exhibits Abnormal Movement: No - Attitude and Relatedness Attitude and Relatedness: Cooperative Eye Contact: Good - Speech Quality: Unpressured Latencies: Normal Quantity: Appropriate - Mood Patient's Decription of Mood: "Upset" - Affect Observed Affect: Good Affect Consistent with: Euthymia - Thought Process Patient's Thought Process: Coherent, Goal Directed Thought Content: No Passive Wish, No Suicidal Planning, No Homicidal Ideation, No Paranoid Ideation - Sensorium Experiencing Hallucinations: No, Sensorium is Clear Type of Hallucinations: Visual: No, Auditory: No, Command: No - Level of Consciousness Level of Consciousness: Alert Orientation: Yes Intact, Yes Orientated to Time, Yes Orientated to Place, Yes Orientated to Person - Impulse Control Impulse Control: Tenuous - Insight and Judgement Insight and Judgement: Good - Group Participation Particating in Group Activities: Yes - Medication Management Medication Management Adherence: Yes Assessment - Assessment Merits Inpatient Hospitalization: For Immediate Safety, For Stabilization, Consolidate Improvements Inpatient DSM-V Dx: F31.2 Clinical Impression: 37yo white female with history of PTSD and bipolar d/o who presented to ED via IPD in manic state. Plan - Plan Treatment Plan: Name: JULIO MCCORMACK Birthdate: 1980 [id number] continue acute intensive psychiatric treatment. increase observation to q15min and hold computer/comfort room privileges. change clonazepam to lorazepam, continue guanfacine for impulse control. continue titration of Latuda. obtain repeat UA and CMP. discharge planning to include outpatient providers. Continued Medication Management: Different Medication Medications: Current Medications Acetaminophen (Tylenol Tab*) 650 mg PO Q4H PRN PRN Reason: for pain; or Temp >101 F Last Admin: 10/22/17 08:05 Dose: 650 mg Al Hydrox/Mg Hydrox/Simethicone (Maalox Plus*) 30 ml PO Q4H PRN PRN Reason: INDIGESTION Last Admin: 10/22/17 11:34 Dose: 30 ml Albuterol (Ventolin Hfa Inhaler*) 2 puff INH Q6H PRN PRN Reason: SOB/WHEEZING Last Admin: 10/22/17 11:37 Dose: 2 puff Chlorpromazine HCl (Thorazine Tab*) 100 mg PO Q6H PRN PRN Reason: AGITATION Lorazepam (Ativan Tab(*)) 1 mg PO Q4H PRN PRN Reason: ANXIETY Last Admin: 10/22/17 16:02 Dose: 1 mg Lurasidone HCl (Latuda) 60 mg PO BEDTIME CHESTER Multivitamins (Theragran Tab*) 1 tab PO DAILY CHESTER Last Admin: 10/22/17 08:01 Dose: 1 tab Nicotine (Nicotine Inhaler*) 10 mg INH Q2H PRN PRN Reason: CRAVING Last Admin: 10/21/17 15:18 Dose: 10 mg Prazosin HCl (Minipress Cap*) 1 mg PO BID CHESTER Sodium Chloride (Sodium Chloride 0.65% Nasal [place]*) 1 spray BOTH NARES Q4H PRN PRN Reason: dryness Last Admin: 10/22/17 15:18 Dose: 1 spray - Discharge Plan Discharge Plan: Outpatient Follow Up Outpatient Program: [facility]
[2017-10-22] MEDS: traMADol TAB* 50 MG PO PRN ×2 (16:59→23:25)
[2017-10-22] MEDS: Prazosin CAP* 1 MG PO SCH (21:49)
[2017-10-22] MEDS: Lurasidone(*) 60 MG TAB PO SCH (21:49)
[2017-10-23] MEDS: LORazepam TAB(*) 1 MG PO PRN ×2 (03:55→11:27)
[2017-10-23] MEDS: Albuterol HFA INHALER* 8 gm MDI INH PRN ×3 (04:00→22:03)
[2017-10-23] MEDS: Saline NASAL SPRAY 0.65%* BTL BOTH NARES PRN ×3 (04:05→19:22)
[2017-10-23] MEDS: Vitamin THERAPEUTIC TAB PO SCH (07:51)
[2017-10-23] MEDS: Prazosin CAP* 1 MG PO SCH ×2 (07:51→21:59)
[2017-10-23] MEDS: traMADol TAB* 50 MG PO PRN ×2 (14:37→22:00)
[2017-10-23] MEDS ORDERED: Benzocaine/Menthol LOZ* 1 LOZENGE MT PRN (15:11)
[2017-10-23] MEDS: Nicotine Inhaler* 10 MG AMP INH PRN (19:21)
[2017-10-23] MEDS: Oral Rinse (Biotene)(NF) 237 ML or 473 ML ORAL RINSE BTL MT PRN (19:21)
[2017-10-23] MEDS: Lurasidone(*) 60 MG TAB PO SCH (21:59)
[2017-10-24] MEDS: traMADol TAB* 50 MG PO PRN ×2 (03:35→09:43)
[2017-10-24] MEDS: Acetaminophen TAB* 325 MG PO PRN ×2 (04:42→12:32)
[2017-10-24] MEDS: Oral Rinse (Biotene)(NF) 237 ML or 473 ML ORAL RINSE BTL MT PRN (08:17)
[2017-10-24] MEDS: Prazosin CAP* 1 MG PO SCH (08:18)
[2017-10-24] MEDS: Vitamin THERAPEUTIC TAB PO SCH (08:18)
[2017-10-24] MEDS: Saline NASAL SPRAY 0.65%* BTL BOTH NARES PRN (08:21)
[2017-10-24] MEDS: Albuterol HFA INHALER* 8 gm MDI INH PRN (08:21)
[2017-10-24 09:46] VITALS: BP 117/82
[2017-10-24] MEDS: LORazepam TAB(*) 1 MG PO PRN (12:32)
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
--- NOTE | 2017-11-06 08:04 | ED ---
Progress - Progress Note Progress Note: Pending MHE - Consult/PCP Time Called: 10:07 Course/Dx - Course Course Of Treatment: MHE AND DISPOSITION PENDING AT SHIFT CHANGE - Diagnoses Provider Diagnoses: Mental health problem Discharge - Sign-Out/Discharge Documenting (check all that apply): Receiving Sign-Out Signing out patient TO: Deepa Olivares - PENDING MHE Receiving patient FROM: Tre Watson - PENDING MHE - Discharge Plan Condition: Improved Disposition: PSYCHIATRIC FACILITY-[facility] - Billing Disposition and Condition Condition: IMPROVED Disposition: Psychiatric Facility [facility]
== END 2017-10-24 13:00 | disposition home or self-care (01) | DRG 753 ==
LOC: ED 20:37 → BSU 10-11 13:11
PROVIDERS: ADMIT Psychiatry & Neurology Psychiatry; ATTEND Psychiatry & Neurology Psychiatry
DX: F31.2 Bipolar disorder, current episode manic severe with psychotic features (principal); F43.10 Post-traumatic stress disorder, unspecified; G43.909 Migraine, unspecified, not intractable, without status migrainosus; Z79.899 Other long term (current) drug therapy; Z88.0 Allergy status to penicillin; Z88.8 Allergy status to other drugs, medicaments and biological substances; Z81.8 Family history of other mental and behavioral disorders
CPT/HCPCS: 36415; 70551; 80053; 80061; 80307; 80320; 80329; 81003; 81015; 83036; 84443; 84702; 85025; 87086; 90853; 96102; 99222; 99231; 99232; 99233; 99238; 99284; A9270-GY; G0480; J1200; J1630; J2060

== ENCOUNTER 2017-11-15 14:49 | Inpatient (IN) | payer OTHER, BC ==
[2017-11-15 15:48] LABS: ABS Basophils 0.1 10^3/ul (0-0.2); ABS Eosinophils 0.1 10^3/ul (0-0.6); ABS Lymphocytes 2.3 10^3/ul (1.0-4.8); ABS Neutrophils 9.8 10^3/ul (1.5-7.7); ABS Nucleated RBC 0 10^3/ul; Eosinophil % 0.4 % (0-6); Hematocrit 42 % (35-47); Lymphocyte % 17.2 % (25-47); Mean Corpuscular HGB Conc 34 g/dl (31-36); Mean Corpuscular Hemoglobin 32 pg (27-31); Mean Corpuscular Volume 94 fL (80-97); Mean Platelet Volume 8.3 um3 (7.4-10.4); Nucleated Red Blood Cells % 0.1; Platelet Count 269 10^3/ul (150-450); Red Blood Count 4.42 10^6/ul (4.00-5.40); Red Cell Distribution Width 13 % (10.5-15); White Blood Count 13.3 10^3/ul (3.5-10.8)
[2017-11-15] MEDS ORDERED: diPHENhydraMINE IV* 50 MG/ML 1 ml VIAL (BENADRYL) IM ONE ×2 (16:00→23:09)
[2017-11-15] MEDS ORDERED: LORazepam INJ* 2 MG/ML 1 ML VIAL IM ONE ×2 (16:00→23:09)
[2017-11-15 16:06] LABS: EGFR Non-African American 62.4 (>60)
[2017-11-15 16:24] LABS: Urine Appearance Cloudy; Urine Blood Negative (Negative); Urine Color Yellow; Urine Ketones Negative (Negative); Urine Protein Negative (Negative); Urine Specific Gravity 1.015 (1.010-1.030); Urine Urobilinogen Negative (Negative)
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
--- NOTE | 2017-11-16 07:13 | ED ---
Jason Lugo Elizabeth, scribed for Fei Manzo MD on 11/16/17 at 0019 . Progress - Progress Note Progress Note: Patient is signed out from Dr. Keller to Dr. Manzo upon physician shift change pending mental health evaluation. - Consult/PCP Time Called: 00:00 Re-Evaluation - Re-Evaluation First Eval Re-Evaluation Time: 00:26 Change: Unchanged Comment: Pt seen and examined by Psych. Plan for inpatient psych evaluation and treatment. Will continue to monitor as pt has gradually become more agitated. Second Eval Re-Evaluation Time: 05:20 Change: Improved - Pt resting comfortably in bed. Pt awaiting inpatient pysch transfer. pt with no acute events overnight. Course/Dx - Course Course Of Treatment: Ms. Amaya was brought in [id number] by the police for bizarre behavior. There was a concern that she was intoxicated and attempting to drive as she was unsteady on her feet. Here the patient had some tangential thinking and minor manic behavior. At this point she has been medically cleared and she is awaiting mental health evaluation. - Diagnoses Provider Diagnoses: Bipolar 1 disorder, manic, mild Discharge - Sign-Out/Discharge Documenting (check all that apply): Sign-Out Patient Signing out patient TO: Joel Echavarria Receiving patient FROM: Fei Manzo - Discharge Plan Condition: Stable Discharge Disposition Comment: sign out to Dr. Echavarria upon physician shift change pending MHE Referrals: Prashant Rivas MD [Primary Care Provider] - The documentation as recorded by the Jason villarreal Elizabeth accurately reflects the service I personally performed and the decisions made by , Fei Manzo MD.
[2017-11-16] MEDS ORDERED: Acetaminophen TAB* 325 MG PO ONE ×2 (07:30→16:39)
--- NOTE | 2017-11-16 07:34 | PN ---
ED Flex Patient Progress Note Subjective: This is a 37 year-old F who is pending psychiatric evaluation secondary to ____ anemia/tangential thinking. She was brought in by the police initially for with concerns of intoxication however her tox screen here is negative. She admits she forgot to take her prazosin yesterday and had a "crappy coffee drink ". She also admits to taking a puff of her friends vaporizer however she does not know what was in it. Denies ingestion or use of any other drugs or toxins. Pt reports her lower back is sore as well as her left flank area. She denies known injury although does recall that she fell on the "covered bridge" in [facility] yesterday. She then goes on to attempt to explain which she recalls from yesterday, initially stating she doesn't remember anything then stating she remembers everything. She'll she's been here held here illegally and wants to speak with aware. Concerned that no one asked her if she has any responsibility such as a child to take care of. States "good thing my son does need me to pick him up from school". Has a friend Sarah in town - does not have her phone number. Objective: Vitals: Most recent vital signs documented below. General NAD, Alert and oriented x3. Heart: rrr S1/S2 Lungs: CTA, breathing AB: + bs, SOFT, nttp integ: scab over Lt elbow - no other areas of injury observed MIKEL: pt moves as though she is stiff but no limited ROM, no deformity PSYCH: agitated, paranoid Assessment: 1) disorganized thinking, paranoid 2) LBP Plan: 1) Pending psychiatric eval. Will follow up daily __while in ED___. 2) acetaminophen ordered Vital Signs Temp Pulse Resp BP Pulse Ox 97.5 F 86 20 98/65 98 11/15/17 15:43 11/16/17 04:25 11/16/17 04:25 11/16/17 04:25 11/16/17 04:25 Lab Results - Entire Visit 11/15/17 11/15/17 11/15/17 15:40 15:40 15:33 WBC 13.3 H RBC 4.42 Hgb 14.0 Hct 42 MCV 94 MCH 32 H MCHC 34 RDW 13 Plt Count 269 MPV 8.3 Neut % (Auto) 74.1 Lymph % (Auto) 17.2 L [place] % (Auto) 7.7 H Eos % (Auto) 0.4 Baso % (Auto) 0.6 Absolute Neuts (auto) 9.8 H Absolute Lymphs (auto) 2.3 Absolute Monos (auto) 1.0 H Absolute Eos (auto) 0.1 Absolute Basos (auto) 0.1 Absolute Nucleated RBC 0 Nucleated RBC % 0.1 Sodium 138 Potassium 3.7 Chloride 106 Carbon Dioxide 22 Anion Gap 10 BUN 7 Creatinine 1.00 H Est GFR ( Amer) 80.2 Est GFR (Non-Af Amer) 62.4 BUN/Creatinine Ratio 7.0 L Glucose 99 Calcium 9.6 Total Bilirubin 0.50 AST 22 ALT 18 Alkaline Phosphatase 51 Total Protein 7.4 Albumin 4.6 Globulin 2.8 Albumin/Globulin Ratio 1.6 TSH 1.10 Beta HCG, Quant 0.89 Urine Color Urine Appearance Urine pH Ur Specific Guild Urine Protein Urine Ketones Urine Blood Urine Nitrate Urine Bilirubin Urine Urobilinogen Ur Leukocyte Esterase Urine WBC (Auto) Urine RBC (Auto) Ur Squamous Epith Cells Urine Bacteria Urine Glucose Salicylates < 2.50 Urine Opiates Screen None detected Acetaminophen < 15 Ur Barbiturates Screen None detected Ur Phencyclidine Scrn None detected Ur Amphetamines Screen None detected U Benzodiazepines Scrn None detected Urine Cocaine Screen None detected U Cannabinoids Screen None detected Serum Alcohol < 10 11/15/17 15:33 WBC RBC Hgb Hct MCV MCH MCHC RDW Plt Count MPV Neut % (Auto) Lymph % (Auto) [place] % (Auto) Eos % (Auto) Baso % (Auto) Absolute Neuts (auto) Absolute Lymphs (auto) Absolute Monos (auto) Absolute Eos (auto) Absolute Basos (auto) Absolute Nucleated RBC Nucleated RBC % Sodium Potassium Chloride Carbon Dioxide Anion Gap BUN Creatinine Est GFR ( Amer) Est GFR (Non-Af Amer) BUN/Creatinine Ratio Glucose Calcium Total Bilirubin AST ALT Alkaline Phosphatase Total Protein Albumin Globulin Albumin/Globulin Ratio TSH Beta HCG, Quant Urine Color Yellow Urine Appearance Cloudy Urine pH 5.0 Ur Specific Guild 1.015 Urine Protein Negative Urine Ketones Negative Urine Blood Negative Urine Nitrate Negative Urine Bilirubin Negative Urine Urobilinogen Negative Ur Leukocyte Esterase Trace A Urine WBC (Auto) Trace(0-5/hpf) Urine RBC (Auto) Absent Ur Squamous Epith Cells Present A Urine Bacteria Absent Urine Glucose Negative Salicylates Urine Opiates Screen Acetaminophen Ur Barbiturates Screen Ur Phencyclidine Scrn Ur Amphetamines Screen U Benzodiazepines Scrn Urine Cocaine Screen U Cannabinoids Screen Serum Alcohol
--- NOTE | 2017-11-16 08:33 | RAD ---
HISTORY: Fall w/ balance issues, poor insight COMPARISONS: MRI dated October 15, 2017, head CT dated December 16, 2003, MRI of the brain dated January 01, 2004 TECHNIQUE: Multiple contiguous axial CT scans were obtained of the head without intravenous contrast. FINDINGS: HEMORRHAGE/INFARCT: There is no hemorrhage or acute infarct. MASSES/SHIFT: There is no mass or shift. EXTRA-AXIAL SPACES: There are no extra-axial fluid collections. SULCI AND VENTRICLES: The sulci and ventricles are normal in size and position for the patient's stated age. CEREBRUM: There are no focal parenchymal abnormalities. BRAINSTEM: There are no focal parenchymal abnormalities. CEREBELLUM: There are stable encephalomalacia with dystrophic calcification of the right inferior cerebellum. VESSELS: The vessels are grossly normal. PARANASAL SINUSES: The paranasal sinuses are clear. ORBITS: The orbits are unremarkable. BONES AND SOFT TISSUE: No bone or soft tissue abnormalities are noted. OTHER: None IMPRESSION: NO ACUTE INTRACRANIAL PATHOLOGY. STABLE ENCEPHALOMALACIA WITH DYSTROPHIC CALCIFICATION OF THE RIGHT INFERIOR CEREBELLUM.
--- NOTE | 2017-11-16 13:05 | ED ---
I, Maisha Thakur, scribed for Joel Echavarria MD on 11/16/17 at 0702 . Progress - Progress Note Progress Note: This pt is a sign out from Dr. Manzo at shift change pending MHE. - Consult/PCP Time Called: 00:00 Re-Evaluation - Re-Evaluation First Eval Re-Evaluation Time: 00:26 Change: Unchanged Comment: Pt seen and examined by Psych. Plan for inpatient psych evaluation and treatment. Will continue to monitor as pt has gradually become more agitated. Second Eval Re-Evaluation Time: 05:20 Change: Improved - Pt resting comfortably in bed. Pt awaiting inpatient pysch transfer. pt with no acute events overnight. Course/Dx - Course Course Of Treatment: Ms. Amaya was brought in 941 by the police for bizarre behavior. There was a concern that she was intoxicated and attempting to drive as she was unsteady on her feet. Here the patient had some tangential thinking and minor manic behavior. At this point she has been medically cleared and she is awaiting mental health evaluation. At 10:46, Dr. Maria visited the pt in the ED. [facility] - Diagnoses Provider Diagnoses: Bipolar 1 disorder, manic, mild, Fall, PTSD (post-traumatic stress disorder) Discharge - Sign-Out/Discharge Documenting (check all that apply): Discharge/Admit/Transfer - Admit, Receiving Sign-Out Receiving patient FROM: Fei Manzo - Pending MHE. - Discharge Plan Condition: Stable [facility] [place] Referrals: Prashant Rivas MD [Primary Care Provider] - - Billing Disposition and Condition Condition: STABLE Disposition[place] [facility] [place] The documentation as recorded by the Blaze villarreal Stephanie accurately reflects the service I personally performed and the decisions made by me, Joel Echavarria MD.
[2017-11-16] MEDS ORDERED: Al Hydrox/Mg Hydrox/Simet LIQ* 30 ML UDC PO ONE (13:13)
[2017-11-16] MEDS ORDERED: Acetaminophen TAB* 325 MG PO PRN (17:51)
[2017-11-16] MEDS ORDERED: Al Hydrox/Mg Hydrox/Simet LIQ* 30 ML UDC PO PRN (20:16)
[2017-11-16] MEDS: Nicotine Inhaler* 10 MG AMP INH PRN (21:11)
[2017-11-16] MEDS: Mouth Piece, Nicotine* 1 EACH CARTRIDGE INH SCH (21:11)
[2017-11-16] MEDS: Prazosin CAP* 5 MG PO SCH (21:12)
[2017-11-16] MEDS: Acetaminophen TAB* 325 MG PO PRN (21:13)
[2017-11-16] MEDS: LORazepam TAB(*) 1 MG PO PRN (23:48)
[2017-11-17] MEDS: Acetaminophen TAB* 325 MG PO PRN ×2 (07:30→14:47)
[2017-11-17] MEDS: Vitamin THERAPEUTIC TAB PO SCH (09:03)
[2017-11-17] MEDS: Lurasidone(*) 40 MG TAB PO SCH (17:23)
[2017-11-17] MEDS: LORazepam TAB(*) 1 MG PO PRN (20:59)
[2017-11-17] MEDS: Prazosin CAP* 5 MG PO SCH (20:59)
--- NOTE | 2017-11-17 21:07 | HP ---
HISTORY AND PHYSICAL: DATE OF ADMISSION: 11/17/17 IDENTIFYING DATA: Liz is a 37-year-old employed female with extensive history of mental illness and multiple prior psychiatric hospitalizations, was recently discharged from this unit, then came back, brought in by [facility] police for bizarre, disorganized, and paranoid behavior in the community. She was discharged from this unit on 10/24/17 after being hospitalized on 10/11/17. She was brought to the emergency department on 9.41 status because of displaying bizarre, disorganize d, and paranoid thoughts and behaviors. She believed that one of her neighbors was planning to shoot her and she also believed that Summer was at war, that people are going to due to a chemical war fare, and things of that nature. On today's evaluation, she denies any of that although she continue s to be hyperverbal, jumping from topic to topic, and being distrustful of the web producer and wanted o ne of her friends that was visiting to be available around. Her conversation was mostly focused on h er fall in front of a store couple of days ago while the police was trying to test her for drunken dr iving or testing her for that kind of behaviors that she was exhibiting. I believe, during that proc ess, she may have fallen. Maybe that was the sobriety test that the police officers were trying to d o on her and the suspicion was because she was found to be driving in a very disorganized manner appe aring to be intoxicated. In the emergency room, she complained of left shoulder pain and continues t o complain of pain on her left lumbar region and asking for something stronger than Tylenol. Althoug h she is hyperverbal, she is capable of providing some information, which is meaningful, she jumps fr om topic to topic, [id number] pressured, very much guarded,and accusing others of doing wrong to her including the medication that was prescribed to her during the last hospitalization, which ca used her to vomit blood. However, she still continues to be an unreliable historian. She denies any active suicidal or homicidal thoughts, also denies any hallucinations including auditory, visual, or tactile hallucinations. PAST PSYCHIATRIC HISTORY: Remarkable for numerous hospitalizations since 2003. She was hospitalized at [place], here at [facility] [place], and maybe other hospitals in the area. She goes to [facility] for her outpatient treatments. She also has a therapist by the name Mandi Rodarte he was previously diagnosed with bipolar disorder, PTSD, adjustment disorder, cannabis use disorder, and so on. MEDICATIONS: Medication trials include with Seroquel, Tegretol, prazosin, Depakote, Haldol, lithium, and Risperdal. She was discharged on lurasidone 60 mg p.o. at bedtime, prazosin 1 mg p.o. twice tristan ly and her Klonopin that was prescribed by her primary care physician was left to him/her to continue or discontinue. Not sure about her compliance with the appointments since her discharge from here. PAST MEDICAL HISTORY: Mentions that she has low back pain from an injury in the past, migraine heada ches, and she denies any seizure disorder. ALLERGIES: Include CARBAMAZEPINE, PENICILLIN, and SUMATRIPTAN. FAMILY PSYCHIATRIC HISTORY: Mentions that she has an aunt who was diagnosed with bipolar disorder. 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 DRUG AND ALCOHOL HISTORY: Unremarkable at this time, although she has a past remote history of [email or web address] marijuana. Her drug screen was negative for all street drugs and alcohol. PHYSICAL EXAMINATION The patient declined physical exam and even was not comfortable being in the same room with the exami ner, wanted to have her visiting friend with her around the examination. VITAL SIGNS: Unremarkable with a blood pressure of 150/90, pulse 84, respirations 18, temperature 97 .5, and pulse ox 99 on room air. LABORATORY DATA: Review of labs were unremarkable. Briefly, her CBC shows a WBC count of 13.3, whi ch is slightly higher than normal, hemoglobin 14, hematocrit 42, and platelet count 269. Chem profil e shows a sodium level of 138, potassium 3.7, chloride 106, carbon dioxide 22, BUN 7, creatinine 1, w hich is slightly higher than normal range for her age, GFR 62.4. Rest of the report is unremarkable. Drug screen was negative. MENTAL STATUS EXAMINATION: Liz is healthy-appearing, neatly dressed and groomed female w ith no evidence of physical distress at this time. She is hyperverbal with moderate degree of tangen tiality and circumstantiality. Her speech is pressured, mostly circumstantial, and tangential. Thou ght process is also the same and thought content has paranoid delusions believing that her neighbors trying to shoot her and there is a chemical warfare in the [place] area. She is distrustful of the wri ter as well as some staff member in the unit. Otherwise, denies any thoughts of harming self or other s. Also denies any auditory or visual hallucinations. Her insight and judgment are impaired. Memor y functions are intact in all spheres. SUMMARY: This 37-year-old female with known history of mental illness, repeated psychiatric hospital izations, was re-hospitalized last evening due to what appears to be a manic episode in the context o f not taking her prescribed medications. DIAGNOSTIC IMPRESSION: Bipolar I disorder, current episode manic, with psychotic features, rule out schizoaffective disorder. PHYSICAL HEALTH DIAGNOSES: Status post fall with minor injuries. Migraine headache. TREATMENT RECOMMENDATIONS: Include hospitalization on behavioral science unit for her safety and rap id stabilization of acute manic and psychotic symptoms. Her code status will remain full, supportive milieu, individual and group therapy will be initiated. I will continue her on all her medications that she was taking outpatient, I repeat, she was taking on an outpatient basis. She may not take jasmin rasidone and I will try to convince her to take something for her psychosis. At this point, she is n ot willing to take anything, rather she is focusing on a stimulant claiming that she has ADHD. Rest of the psychopharmacological management will be deferred to her assigned psychiatrist on the unit; juanita navarrete, she will benefit from a mood stabilizer. My recommendation will be either lithium or Depakote . [id number]/[facility] #: [id number]
[2017-11-18] MEDS: Ibuprofen TAB* 600 MG PO PRN ×3 (03:15→21:12)
[2017-11-18] MEDS: Vitamin THERAPEUTIC TAB PO SCH (08:28)
[2017-11-18] MEDS: Acetaminophen TAB* 325 MG PO PRN (09:45)
[2017-11-18] MEDS: Lurasidone(*) 40 MG TAB PO SCH (18:01)
[2017-11-18] MEDS: Mouth Piece, Nicotine* 1 EACH CARTRIDGE INH SCH (19:25)
[2017-11-18] MEDS: Nicotine GUM* 2 MG PO PRN (19:26)
[2017-11-18] MEDS: Nicotine Inhaler* 10 MG AMP INH PRN (19:26)
[2017-11-18] MEDS: LORazepam TAB(*) 1 MG PO PRN (21:12)
[2017-11-18] MEDS: Prazosin CAP* 5 MG PO SCH (21:13)
[2017-11-19] MEDS: Ibuprofen TAB* 600 MG PO PRN ×3 (05:14→23:01)
[2017-11-19] MEDS: Acetaminophen TAB* 325 MG PO PRN ×2 (05:16→23:01)
[2017-11-19] MEDS: Vitamin THERAPEUTIC TAB PO SCH (08:35)
[2017-11-19 13:27] LABS: Urine Appearance Cloudy; Urine Blood Negative (Negative); Urine Color Yellow; Urine Ketones Negative (Negative); Urine Protein Negative (Negative); Urine Specific Gravity 1.016 (1.010-1.030); Urine Urobilinogen Negative (Negative)
--- NOTE | 2017-11-19 13:38 | PN ---
Subjective - Subjective Date of Service: 11/19/17 Service Type: 15117 Hosp care 25 min moderate complexity Subjective: Patient is irritable and continues to blame various other people and agencies for her admission to the hospital. She states that "Latuda almost killed me more than once." She states that it causes "brain aneurysms and slowing my heart down." She states that she stopped taking Latuda 2 days prior to admission. [I presume she stopped taking shortly after last discharge.] Patient goes on to describe activity since last discharge. She states she drove about [facility] and visited family [facility]. She states that she and Delmar (father of her son) are not getting along well because Delmar does not accountability for his own mental health problems. Objective - Appearance Appearance: Well Developed/Nourished Dysmorphic Features: No Hygiene: Normal Grooming: Well Kept - Behavior Psychomotor Activities: Normal Exhibits Abnormal Movement: No - Attitude and Relatedness Attitude and Relatedness: Irritable Eye Contact: Good - Speech Quality: Unpressured Latencies: Normal Quantity: Copious - Mood Patient's Decription of Mood: "Upset" - Affect Observed Affect: Expansive Affect Consistent with: Euphoria - Thought Process Patient's Thought Process: Circumstantial Thought Content: Yes Paranoid Ideation, No Passive Wish, No Suicidal Planning, No Homicidal Ideation - Sensorium Experiencing Hallucinations: No, Sensorium is Clear Type of Hallucinations: Visual: No, Auditory: No, Command: No - Level of Consciousness Level of Consciousness: Alert Orientation: Yes Intact, Yes Orientated to Time, Yes Orientated to Place, Yes Orientated to Person - Impulse Control Impulse Control: Poor - Insight and Judgement Insight and Judgement: Impaired - Group Participation Particating in Group Activities: No - Medication Management Medication Management Adherence: Partial Assessment - Assessment Merits Inpatient Hospitalization: For Immediate Safety, For Stabilization Inpatient DSM-V Dx: F31.12 Clinical Impression: 37yo female with history of bipolar d/o and poor insight. Presented to ED via police due to bizarre and disorganized behavior in the community. This is a second admission within a month with similar presentation and likely medication non-adherence. Plan - Plan Treatment Plan: Name: JULIO MCCORMACK Birthdate: 1980 [id number] continue acute intensive psychiatric treatment. add behavior modification plan. add haloperidol for agitation. will consider TOO if no improvement. Medications: Current Medications Acetaminophen (Tylenol Tab*) 650 mg PO Q4H PRN PRN Reason: PAIN or TEMP > 101 F Last Admin: 11/19/17 05:16 Dose: 650 mg Al Hydrox/Mg Hydrox/Simethicone (Maalox Plus*) 30 ml PO Q4H PRN PRN Reason: INDIGESTION Device (Nicotine Mouth Piece*) 1 each INH .[facility] Last Admin: 11/18/17 19:25 Dose: 1 each Ibuprofen (Motrin Tab*) 600 mg PO Q6H PRN PRN Reason: PAIN Last Admin: 11/19/17 05:14 Dose: 600 mg Lorazepam (Ativan Tab(*)) 2 mg PO Q6H PRN PRN Reason: AGITATION/ANXIETY/JEREMIAH Last Admin: 11/18/17 21:12 Dose: 2 mg Lurasidone HCl (Latuda) 40 mg PO 1700 [facility] Last Admin: 11/18/17 18:01 Dose: Not Given Multivitamins (Theragran Tab*) 1 tab PO DAILY [facility] Last Admin: 11/19/17 08:35 Dose: 1 tab Nicotine (Nicotine Inhaler*) 10 mg INH Q2H PRN PRN Reason: CRAVING Last Admin: 11/18/17 19:26 Dose: 10 mg Nicotine Polacrilex (Nicotine Gum*) 2 mg PO Q2H PRN PRN Reason: CRAVING Last Admin: 11/18/17 19:26 Dose: 2 mg Prazosin HCl (Minipress Cap*) 5 mg PO BEDTIME [facility] Last Admin: 11/18/17 21:13 Dose: 5 mg - Discharge Plan Discharge Plan: [facility]
[2017-11-19] MEDS ORDERED: Haloperidol TAB* 2 MG PO PRN (13:42)
[2017-11-19] MEDS: Lurasidone(*) 40 MG TAB PO SCH (20:53)
[2017-11-19] MEDS: Prazosin CAP* 5 MG PO SCH (21:09)
[2017-11-19] MEDS: LORazepam TAB(*) 1 MG PO PRN (22:59)
[2017-11-20] MEDS: Ibuprofen TAB* 600 MG PO PRN ×2 (05:28→14:37)
[2017-11-20] MEDS: Acetaminophen TAB* 325 MG PO PRN (05:28)
[2017-11-20] MEDS: Vitamin THERAPEUTIC TAB PO SCH (08:11)
--- NOTE | 2017-11-20 14:55 | PN ---
Subjective - Subjective Date of Service: 11/20/17 Service Type: 82916 Hosp care 25 min moderate complexity Subjective: Per staff, patient continues to be intrusive and demanding. She is easily agitated in regards to staff behaviors or what she believes are inconsistencies. Patient blames senior writer for "making this difficult" in regards to not telling her what day she will discharged. She is not accepting education about her poor insight and inaccurate reports of side effects of medication. She states that she is being "kind" by not involving her tinsel machine operator. Gang Investigator informs patient of potential TOO and/or state hospital referral. She responds "I've been referred to the state" and shows me a ticket from [employer]. Patient goes on to berate senior writer. Objective - Appearance Appearance: Well Developed/Nourished Dysmorphic Features: No Hygiene: Normal Grooming: Fairly Well Kept - Behavior Psychomotor Activities: Normal Exhibits Abnormal Movement: No - Attitude and Relatedness Attitude and Relatedness: Hostile Eye Contact: Good - Speech Quality: Pressured Latencies: Normal Quantity: Copious - Mood Patient's Decription of Mood: "Upset" - Affect Observed Affect: Expansive Affect Consistent with: Euphoria - Thought Process Patient's Thought Process: Loose Associations, Tangential Thought Content: Yes Paranoid Ideation, No Passive Wish, No Suicidal Planning, No Homicidal Ideation - Sensorium Experiencing Hallucinations: No, Sensorium is Clear Type of Hallucinations: Visual: No, Auditory: No, Command: No - Level of Consciousness Level of Consciousness: Alert Orientation: Yes Intact, Yes Orientated to Time, Yes Orientated to Place, Yes Orientated to Person - Impulse Control Impulse Control: Impaired - Insight and Judgement Insight and Judgement: Impaired - Group Participation Particating in Group Activities: No - Medication Management Medication Management Adherence: Partial Assessment - Assessment Inpatient DSM-V Dx: F31.12 Clinical Impression: 37yo female with history of bipolar d/o and poor insight. Presented to ED via police due to bizarre and disorganized behavior in the community. This is a second admission within a month with similar presentation and likely medication non-adherence. Plan - Plan Treatment Plan: Name: JULIO MCCORMACK Birthdate: 1980 [id number] continue acute intensive psychiatric treatment. add behavior modification plan. add lamotrigine for mood stabilization. utilize haloperidol prn for agitation. will consider TOO and referral to [facility] if no improvement. Continued Medication Management: Start Medication Medications: Current Medications Acetaminophen (Tylenol Tab*) 650 mg PO Q4H PRN PRN Reason: PAIN or TEMP > 101 F Last Admin: 11/20/17 05:28 Dose: 650 mg Al Hydrox/Mg Hydrox/Simethicone (Maalox Plus*) 30 ml PO Q4H PRN PRN Reason: INDIGESTION Device (Nicotine Mouth Piece*) 1 each INH .[facility] Last Admin: 11/18/17 19:25 Dose: 1 each Haloperidol (Haldol Tab*) 2 mg PO Q6H PRN PRN Reason: AGITATION Last Admin: 11/20/17 14:25 Dose: 2 mg Ibuprofen (Motrin Tab*) 600 mg PO Q6H PRN PRN Reason: PAIN Last Admin: 11/20/17 14:37 Dose: 600 mg Lamotrigine (Lamictal Tab(*)) 25 mg PO BEDTIME [place] Lorazepam (Ativan Tab(*)) 2 mg PO Q6H PRN PRN Reason: AGITATION/ANXIETY/JEREMIAH Last Admin: 11/19/17 22:59 Dose: 2 mg Lurasidone HCl (Latuda) 40 mg PO 1700 [place] Last Admin: 11/19/17 20:53 Dose: Not Given Multivitamins (Theragran Tab*) 1 tab PO DAILY [facility] Last Admin: 11/20/17 08:11 Dose: 1 tab Nicotine (Nicotine Inhaler*) 10 mg INH Q2H PRN PRN Reason: CRAVING Last Admin: 11/18/17 19:26 Dose: 10 mg Nicotine Polacrilex (Nicotine Gum*) 2 mg PO Q2H PRN PRN Reason: CRAVING Last Admin: 11/18/17 19:26 Dose: 2 mg Prazosin HCl (Minipress Cap*) 5 mg PO BEDTIME [place] Last Admin: 11/19/17 21:09 Dose: 5 mg - Discharge Plan Discharge Plan: Consider Longer Term Tx
[2017-11-20] MEDS ORDERED: Haloperidol TAB* 2 MG PO PRN (16:04)
[2017-11-20] MEDS: Lurasidone(*) 40 MG TAB PO SCH (18:00)
[2017-11-20] MEDS: lamoTRIgine TAB(*) 25 MG PO SCH (21:36)
[2017-11-20] MEDS: Prazosin CAP* 5 MG PO SCH (21:37)
[2017-11-20] MEDS: LORazepam TAB(*) 1 MG PO PRN (21:38)
[2017-11-21] MEDS: Acetaminophen TAB* 325 MG PO PRN (05:08)
[2017-11-21] MEDS: Ibuprofen TAB* 600 MG PO PRN ×2 (05:09→22:38)
[2017-11-21] MEDS: Vitamin THERAPEUTIC TAB PO SCH (08:08)
[2017-11-21] MEDS: Albuterol HFA INHALER* 8 gm MDI INH PRN ×2 (11:42→22:41)
[2017-11-21] MEDS: LORazepam TAB(*) 0.5 MG PO PRN ×2 (12:38→19:41)
--- NOTE | 2017-11-21 15:45 | PN ---
Subjective - Subjective Service Type: 73000 Hosp care 25 min moderate complexity Subjective: Patient has declined lurasidone, lamotrigine and utilized one dose of haloperidol. She has been noted to have poor boundaries with select male peer and destructive to roommate's personal belongings. She continues to deflect anger towards staff. 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 Patient presented with behavior/individualized treatment plan and was dismissive of rationale. Labile during interview, as well as tangential and distractible. Attempts to negotiate medication regimen. Patient reports multiple somatic complaints to staff, including chest pain, that resolves without intervention. Encouraged to utilize lorazepam for anxiety. Objective - Appearance Appearance: Well Developed/Nourished Dysmorphic Features: Yes Hygiene: Normal Grooming: Well Kept - Behavior Psychomotor Activities: Normal Exhibits Abnormal Movement: No - Attitude and Relatedness Attitude and Relatedness: Irritable Eye Contact: Fair - Speech Quality: Unpressured Latencies: Normal Quantity: Copious - Mood Patient's Decription of Mood: "Upset" - Affect Observed Affect: Labile Affect Consistent with: Euphoria - Thought Process Patient's Thought Process: Loose Associations, Tangential Thought Content: Yes Paranoid Ideation, No Passive Wish, No Suicidal Planning, No Homicidal Ideation - Sensorium Experiencing Hallucinations: No, Sensorium is Clear Type of Hallucinations: Visual: No, Auditory: No, Command: No - Level of Consciousness Level of Consciousness: Alert Orientation: Yes Intact, Yes Orientated to Time, Yes Orientated to Place, Yes Orientated to Person - Impulse Control Impulse Control: Impaired - Insight and Judgement Insight and Judgement: Impaired - Group Participation Particating in Group Activities: Yes - Medication Management Medication Management Adherence: Partial Assessment - Assessment Merits Inpatient Hospitalization: For Immediate Safety, For Stabilization, For Ongoing Evaluation Inpatient DSM-V Dx: F31.12 Clinical Impression: 37yo female with history of bipolar d/o and poor insight. Presented to ED via police due to bizarre and disorganized behavior in the community. This is a second admission within a month with similar presentation and likely medication non-adherence. Plan - Plan Treatment Plan: Name: JULIO MCCORMACK Birthdate: 1980 [id number] continue acute intensive psychiatric treatment. continue current medications. Patient agreed to beh mod plan. Will be moved to private room to promote safety , pending availability will consider TOO and referral to on license of [facility] if no improvement. Continued Medication Management: Start Medication Medications: Current Medications Acetaminophen (Tylenol Tab*) 650 mg PO Q4H PRN PRN Reason: PAIN or TEMP > 101 F Last Admin: 11/20/17 05:28 Dose: 650 mg Al Hydrox/Mg Hydrox/Simethicone (Maalox Plus*) 30 ml PO Q4H PRN PRN Reason: INDIGESTION Albuterol (Ventolin Hfa Inhaler*) 2 puff INH Q4H PRN PRN Reason: SHORTNESS OF BREATH Last Admin: 11/21/17 11:42 Dose: 2 puff Device (Nicotine Mouth Piece*) 1 each INH .[facility] Last Admin: 11/18/17 19:25 Dose: 1 each Haloperidol (Haldol Tab*) 5 mg PO Q6H PRN PRN Reason: AGITATION Ibuprofen (Motrin Tab*) 600 mg PO Q6H PRN PRN Reason: PAIN Last Admin: 11/20/17 14:37 Dose: 600 mg Lamotrigine (Lamictal Tab(*)) 25 mg PO BEDTIME [facility] Last Admin: 11/20/17 21:36 Dose: Not Given Lorazepam (Ativan Tab(*)) 0.5 mg PO Q6H PRN PRN Reason: AGITATION/ANXIETY/JEREMIAH Last Admin: 11/21/17 12:38 Dose: 0.5 mg Lurasidone HCl (Latuda) 40 mg PO 1700 [facility] Last Admin: 11/20/17 18:00 Dose: Not Given Multivitamins (Theragran Tab*) 1 tab PO DAILY [facility] Last Admin: 11/21/17 08:08 Dose: 1 tab Nicotine (Nicotine Inhaler*) 10 mg INH Q2H PRN PRN Reason: CRAVING Last Admin: 11/18/17 19:26 Dose: 10 mg Nicotine Polacrilex (Nicotine Gum*) 2 mg PO Q2H PRN PRN Reason: CRAVING Last Admin: 11/18/17 19:26 Dose: 2 mg Prazosin HCl (Minipress Cap*) 5 mg PO BEDTIME [facility] Last Admin: 11/20/17 21:37 Dose: 5 mg - Discharge Plan Discharge Plan: Consider Longer Term Tx
[2017-11-21] MEDS: Lurasidone(*) 40 MG TAB PO SCH (18:20)
[2017-11-21] MEDS: Prazosin CAP* 5 MG PO SCH (20:29)
[2017-11-21] MEDS: lamoTRIgine TAB(*) 25 MG PO SCH (21:53)
[2017-11-22] MEDS: Ibuprofen TAB* 600 MG PO PRN ×2 (04:40→14:14)
[2017-11-22] MEDS: LORazepam TAB(*) 0.5 MG PO PRN ×3 (04:40→18:02)
[2017-11-22] MEDS: Vitamin THERAPEUTIC TAB PO SCH (08:02)
[2017-11-22] MEDS: Albuterol HFA INHALER* 8 gm MDI INH PRN ×2 (08:03→15:38)
[2017-11-22] MEDS ORDERED: Haloperidol TAB* 1 MG PO PRN (14:06)
--- NOTE | 2017-11-22 14:11 | PN ---
Subjective - Subjective Date of Service: 11/22/17 Service Type: 89430 Hosp care 25 min moderate complexity Subjective: Patient continues to endorse somatic symptoms as reasons for medication non- adherence. She is distractible, intrusive and irritable, somewhat improved from yesterday. She speaks with headline writer without confrontational tone but continues to attempt to negotiate medication regimen. Per staff, she is dismissive of behavior mod plan and slept intermittently for 2 hours last night. Patient states she slept well. Objective - Appearance Appearance: Well Developed/Nourished Dysmorphic Features: No Hygiene: Normal Grooming: Well Kept - Behavior Psychomotor Activities: Normal Exhibits Abnormal Movement: No - Attitude and Relatedness Attitude and Relatedness: Manipulative Eye Contact: Good - Speech Quality: Unpressured Latencies: Normal Quantity: Copious - Mood Patient's Decription of Mood: "Anxious" - Affect Observed Affect: Expansive Affect Consistent with: Euphoria - Thought Process Patient's Thought Process: Tangential, Circumstantial Thought Content: No Passive Wish, No Suicidal Planning, No Homicidal Ideation, No Paranoid Ideation - Sensorium Experiencing Hallucinations: No, Sensorium is Clear Type of Hallucinations: Visual: No, Auditory: No, Command: No - Impulse Control Impulse Control: Impaired - Insight and Judgement Insight and Judgement: Impaired - Group Participation Particating in Group Activities: Yes - Medication Management Medication Management Adherence: Partial Assessment - Assessment Merits Inpatient Hospitalization: For Immediate Safety, For Stabilization, For Ongoing Evaluation, Consolidate Improvements Inpatient DSM-V Dx: F31.12 Clinical Impression: 37yo female with history of bipolar d/o and poor insight. Presented to ED via police due to bizarre and disorganized behavior in the community. This is a second admission within a month with similar presentation and likely medication non-adherence. Plan - Plan Treatment Plan: Name: JULIO MCCORMACK Birthdate: 1980 [id number] continue acute intensive psychiatric treatment. DC lurasidone and start scheduled haloperidol, per patient request. continue other medications, including lamotrigine for mood stabilization. continue beh mod plan. will initiate TOO and referral to [facility]. Continued Medication Management: Different Medication Medications: Current Medications Acetaminophen (Tylenol Tab*) 650 mg PO Q4H PRN PRN Reason: PAIN or TEMP > 101 F Last Admin: 11/20/17 05:28 Dose: 650 mg Al Hydrox/Mg Hydrox/Simethicone (Maalox Plus*) 30 ml PO Q4H PRN PRN Reason: INDIGESTION Albuterol (Ventolin Hfa Inhaler*) 2 puff INH Q4H PRN PRN Reason: SHORTNESS OF BREATH Last Admin: 11/22/17 08:03 Dose: 2 puff Device (Nicotine Mouth Piece*) 1 each INH .[facility] Last Admin: 11/18/17 19:25 Dose: 1 each Haloperidol (Haldol Tab*) 5 mg PO Q6H PRN PRN Reason: AGITATION Ibuprofen (Motrin Tab*) 600 mg PO Q6H PRN PRN Reason: PAIN Last Admin: 11/22/17 04:40 Dose: 600 mg Lamotrigine (Lamictal Tab(*)) 25 mg PO BEDTIME [facility] Last Admin: 11/21/17 21:53 Dose: Not Given Lorazepam (Ativan Tab(*)) 0.5 mg PO Q6H PRN PRN Reason: AGITATION/ANXIETY/JEREMIAH Last Admin: 11/22/17 11:39 Dose: 0.5 mg Lurasidone HCl (Latuda) 40 mg PO 1700 [facility] Last Admin: 11/21/17 18:20 Dose: Not Given Multivitamins (Theragran Tab*) 1 tab PO DAILY [facility] Last Admin: 11/22/17 08:02 Dose: 1 tab Nicotine (Nicotine Inhaler*) 10 mg INH Q2H PRN PRN Reason: CRAVING Last Admin: 11/18/17 19:26 Dose: 10 mg Nicotine Polacrilex (Nicotine Gum*) 2 mg PO Q2H PRN PRN Reason: CRAVING Last Admin: 11/18/17 19:26 Dose: 2 mg Prazosin HCl (Minipress Cap*) 5 mg PO BEDTIME [facility] Last Admin: 11/21/17 20:29 Dose: 5 mg - Discharge Plan Discharge Plan: Consider Longer Term Tx
[2017-11-22] MEDS: Haloperidol TAB* 2 MG PO SCH (20:36)
[2017-11-22] MEDS: Prazosin CAP* 5 MG PO SCH (20:36)
[2017-11-22] MEDS: lamoTRIgine TAB(*) 25 MG PO SCH (20:36)
[2017-11-22] MEDS: Nicotine GUM* 2 MG PO PRN (22:07)
[2017-11-23] MEDS: LORazepam TAB(*) 0.5 MG PO PRN ×2 (06:12→11:47)
[2017-11-23] MEDS: Ibuprofen TAB* 600 MG PO PRN ×3 (06:12→21:36)
[2017-11-23] MEDS: Haloperidol TAB* 2 MG PO SCH ×2 (08:26→21:37)
[2017-11-23] MEDS: Vitamin THERAPEUTIC TAB PO SCH (08:26)
--- NOTE | 2017-11-23 10:41 | PN ---
Subjective - Subjective Date of Service: 11/23/17 Service Type: 92213 Hosp care 15 min low complexity Subjective: Julio is seen along with NPP, Marilee Monsalve, from whom I am taking over care for this case. Julio is informed that we will be pursuing a court order for treatment over her objection, due to non-adherence with indicated medications for her bipolar disorder. "Why are you doing this? This is totally different than what you said yesterday...You're being weird!" She is hostile and questions the legality of the process, insisting on seeing the court petition and questioning our procedure for having it notarized. She states several times that she is not happy about this decision and is intrusive, loud and hyperverbal. Objective - Appearance Appearance: Well Developed/Nourished Dysmorphic Features: No Hygiene: Normal Grooming: Well Kept - Behavior Psychomotor Activities: Normal Exhibits Abnormal Movement: No - Attitude and Relatedness Attitude and Relatedness: Hostile Eye Contact: Good - Speech Quality: Pressured Latencies: Short Quantity: Copious - Mood Patient's Decription of Mood: "Angry" - Affect Observed Affect: Labile Affect Consistent with: Dysphoria - Thought Process Patient's Thought Process: Tangential Thought Content: Yes Paranoid Ideation, No Passive Wish, No Suicidal Planning, No Homicidal Ideation - Sensorium Experiencing Hallucinations: No, Sensorium is Clear Type of Hallucinations: Visual: No, Auditory: No, Command: No - Level of Consciousness Level of Consciousness: Agitated Orientation: Yes Intact, Yes Orientated to Time, Yes Orientated to Place, Yes Orientated to Person - Impulse Control Impulse Control: Poor - Insight and Judgement Insight and Judgement: Impaired - Group Participation Particating in Group Activities: No - Medication Management Medication Management Adherence: Yes Assessment - Assessment Merits Inpatient Hospitalization: For Immediate Safety, For Stabilization Inpatient DSM-V Dx: F31.12 Clinical Impression: 37 y.o. single, white female with a history of bipolar disorder and serial non- adherence with indicated medications for her disorder arrives on involuntary basis, having been brought in by law enforcement for bizarre, disorganized and disruptive behavior in the community in the context of, again, self- discontinuation of medications. Plan - Plan Treatment Plan: Name: JULIO MCCORMACK Birthdate: 1980 [id number] The patient's medication adherence remains inconsistent, sometimes taking lamotrigine and sometimes haloperidol. Her care is now transferred to this clinician in preparation for the pursuit of treatment over her objection in [place] [address]. The patient must remain under locked supervision on the BSU due to her continued inability to care for herself in a less restrictive setting. Continued Medication Management: Different Medication Medications: Current Medications Acetaminophen (Tylenol Tab*) 650 mg PO Q4H PRN PRN Reason: PAIN or TEMP > 101 F Last Admin: 11/20/17 05:28 Dose: 650 mg Al Hydrox/Mg Hydrox/Simethicone (Maalox Plus*) 30 ml PO Q4H PRN PRN Reason: INDIGESTION Albuterol (Ventolin Hfa Inhaler*) 2 puff INH Q4H PRN PRN Reason: SHORTNESS OF BREATH Last Admin: 11/22/17 15:38 Dose: 2 puff Device (Nicotine Mouth Piece*) 1 each INH .[facility] Last Admin: 11/18/17 19:25 Dose: 1 each Haloperidol (Haldol Tab*) 1 mg PO Q6H PRN PRN Reason: AGITATION Haloperidol (Haldol Tab*) 2 mg PO BID [facility] Last Admin: 11/23/17 08:26 Dose: 2 mg Ibuprofen (Motrin Tab*) 600 mg PO Q6H PRN PRN Reason: PAIN Last Admin: 11/23/17 06:12 Dose: 600 mg Lamotrigine (Lamictal Tab(*)) 25 mg PO BEDTIME [facility] Last Admin: 11/22/17 20:36 Dose: Not Given Lorazepam (Ativan Tab(*)) 0.5 mg PO Q6H PRN PRN Reason: AGITATION/ANXIETY/JEREMIAH Last Admin: 11/23/17 06:12 Dose: 0.5 mg Multivitamins (Theragran Tab*) 1 tab PO DAILY [facility] Last Admin: 11/23/17 08:26 Dose: 1 tab Nicotine (Nicotine Inhaler*) 10 mg INH Q2H PRN PRN Reason: CRAVING Last Admin: 11/18/17 19:26 Dose: 10 mg Nicotine Polacrilex (Nicotine Gum*) 2 mg PO Q2H PRN PRN Reason: CRAVING Last Admin: 11/22/17 22:07 Dose: 2 mg Prazosin HCl (Minipress Cap*) 5 mg PO BEDTIME [facility] Last Admin: 11/22/17 20:36 Dose: 5 mg - Discharge Plan Discharge Plan: Inpatient Hospitalization
[2017-11-23] MEDS: Acetaminophen TAB* 325 MG PO PRN (11:48)
[2017-11-23] MEDS: Nicotine GUM* 2 MG PO PRN ×2 (15:23→20:07)
[2017-11-23] MEDS: Albuterol HFA INHALER* 8 gm MDI INH PRN (15:23)
[2017-11-23] MEDS: Prazosin CAP* 5 MG PO SCH (20:08)
[2017-11-23] MEDS: lamoTRIgine TAB(*) 25 MG PO SCH (21:37)
[2017-11-24] MEDS: Nicotine GUM* 2 MG PO PRN ×5 (00:10→20:26)
[2017-11-24] MEDS: LORazepam TAB(*) 0.5 MG PO PRN (07:28)
[2017-11-24] MEDS: Haloperidol TAB* 2 MG PO SCH ×2 (10:01→21:02)
[2017-11-24] MEDS: Vitamin THERAPEUTIC TAB PO SCH (10:01)
[2017-11-24] MEDS: Ibuprofen TAB* 600 MG PO PRN ×2 (10:01→22:16)
[2017-11-24] MEDS: Nicotine Inhaler* 10 MG AMP INH PRN (11:14)
[2017-11-24] MEDS: Albuterol HFA INHALER* 8 gm MDI INH PRN (15:35)
[2017-11-24] MEDS: Prazosin CAP* 5 MG PO SCH (20:25)
[2017-11-24] MEDS: Acetaminophen TAB* 325 MG PO PRN (20:28)
[2017-11-24] MEDS: lamoTRIgine TAB(*) 25 MG PO SCH (21:02)
[2017-11-25] MEDS: Ibuprofen TAB* 600 MG PO PRN (06:13)
[2017-11-25] MEDS: Haloperidol TAB* 2 MG PO SCH ×2 (08:49→21:02)
[2017-11-25] MEDS: Vitamin THERAPEUTIC TAB PO SCH (08:49)
[2017-11-25] MEDS: Acetaminophen TAB* 325 MG PO PRN (08:51)
[2017-11-25] MEDS: Nicotine GUM* 2 MG PO PRN ×2 (08:51→16:12)
[2017-11-25] MEDS: Albuterol HFA INHALER* 8 gm MDI INH PRN ×2 (08:52→16:11)
[2017-11-25] MEDS: LORazepam TAB(*) 0.5 MG PO PRN (10:31)
[2017-11-25] MEDS: lamoTRIgine TAB(*) 25 MG PO SCH (21:02)
[2017-11-25] MEDS: Prazosin CAP* 5 MG PO SCH (21:02)
[2017-11-26] MEDS: Ibuprofen TAB* 600 MG PO PRN ×2 (05:15→11:24)
[2017-11-26] MEDS: Vitamin THERAPEUTIC TAB PO SCH (08:03)
[2017-11-26] MEDS: Acetaminophen TAB* 325 MG PO PRN (08:03)
[2017-11-26] MEDS: Haloperidol TAB* 2 MG PO SCH (08:04)
[2017-11-26] MEDS: Albuterol HFA INHALER* 8 gm MDI INH PRN ×2 (11:11→16:28)
[2017-11-26] MEDS: Nicotine GUM* 2 MG PO PRN ×4 (11:11→20:19)
--- NOTE | 2017-11-26 11:56 | PN ---
Subjective - Subjective Date of Service: 11/26/17 Service Type: 56116 Hosp care 25 min moderate complexity Subjective: Liz is seen for follow up. Her care has been taken over from the nurse practitioner service due to non-adherence with antipsychotic medication and the perceived need for T.O.O. proceedings. Today, Liz remains manic and mildly pressured with over-inclusive thought process and fixation on seemingly unrelated somatic issues such as her risks for heart disease. I explain to her once again the rationale for the hospital to take her to court, specifically to see that she be placed on a EAGLE antipsychotic. "Well, maybe I'd just agree to that without court. What medicine are you talking about? What are my options? " I note that she has been adherent over the past several days with oral haloperidol, which can be administered in a once monthly decanoate shot. The patient agrees to this on the basis that a specific staff member give her the injection. She appears to be tolerating her meds well and her cooperation with milieu activities and expectations has been improving. Objective - Appearance Appearance: Well Developed/Nourished, Obese Dysmorphic Features: No Hygiene: Normal Grooming: Well Kept - Behavior Psychomotor Activities: Normal Exhibits Abnormal Movement: No - Attitude and Relatedness Attitude and Relatedness: Psychotically Related Eye Contact: Fair - Speech Quality: Pressured Latencies: Short Quantity: Copious - Mood Patient's Decription of Mood: "Fine" - Affect Observed Affect: Expansive Affect Consistent with: Euphoria - Thought Process Patient's Thought Process: Tangential, Over Inclusive Thought Content: Yes Paranoid Ideation, No Passive Wish, No Suicidal Planning, No Homicidal Ideation - Sensorium Experiencing Hallucinations: No, Sensorium is Clear Type of Hallucinations: Visual: No, Auditory: No, Command: No - Level of Consciousness Level of Consciousness: Alert Orientation: Yes Intact, Yes Orientated to Time, Yes Orientated to Place, Yes Orientated to Person - Impulse Control Impulse Control: Poor - Insight and Judgement Insight and Judgement: Impaired - Group Participation Particating in Group Activities: Yes - Medication Management Medication Management Adherence: Partial Assessment - Assessment Merits Inpatient Hospitalization: For Immediate Safety, For Stabilization Inpatient DSM-V Dx: F31.12 Clinical Impression: 37 y.o. single, white female with a history of bipolar disorder and serial non- adherence with indicated medications for her disorder arrives on involuntary basis, having been brought in by law enforcement for bizarre, disorganized and disruptive behavior in the community in the context of, again, self- discontinuation of medications. Plan - Plan Treatment Plan: Name: LIZ MCCORMACK Birthdate: 1980 [id number] The patient is agreeing to a trial of haloperidol decanoate 75mg IM q4wks. We will administer a dose of this and keep her on prazosin 5mg PO qhs and lamotrigine 25mg PO qhs. The patient's T.O.O. proceedings will be suspended for now and we'll see how she does with the updated treatment plan. If things improve we could pivot to a discharge disposition, as early as late this week. Continued Medication Management: Different Medication Medications: Current Medications Acetaminophen (Tylenol Tab*) 650 mg PO Q4H PRN PRN Reason: PAIN or TEMP > 101 F Last Admin: 11/26/17 08:03 Dose: 650 mg Al Hydrox/Mg Hydrox/Simethicone (Maalox Plus*) 30 ml PO Q4H PRN PRN Reason: INDIGESTION Last Admin: 11/23/17 21:38 Dose: 30 ml Albuterol (Ventolin Hfa Inhaler*) 2 puff INH Q4H PRN PRN Reason: SHORTNESS OF BREATH Last Admin: 11/26/17 11:11 Dose: 2 puff Device (Nicotine Mouth Piece*) 1 each INH .[facility] Last Admin: 11/18/17 19:25 Dose: 1 each Haloperidol (Haldol Tab*) 1 mg PO Q6H PRN PRN Reason: AGITATION Haloperidol Decanoate (Haldol Decanoate*) 75 mg IM Q28D [facility] Ibuprofen (Motrin Tab*) 600 mg PO Q6H PRN PRN Reason: PAIN Last Admin: 11/26/17 11:24 Dose: 600 mg Lamotrigine (Lamictal Tab(*)) 25 mg PO BEDTIME [facility] Last Admin: 11/25/17 21:02 Dose: 25 mg Lorazepam (Ativan Tab(*)) 0.5 mg PO Q6H PRN PRN Reason: AGITATION/ANXIETY/JEREMIAH Last Admin: 11/25/17 10:31 Dose: 0.5 mg Multivitamins (Theragran Tab*) 1 tab PO DAILY [facility] Last Admin: 11/26/17 08:03 Dose: 1 tab Nicotine (Nicotine Inhaler*) 10 mg INH Q2H PRN PRN Reason: CRAVING Last Admin: 11/24/17 11:14 Dose: 10 mg Nicotine Polacrilex (Nicotine Gum*) 2 mg PO Q2H PRN PRN Reason: CRAVING Last Admin: 11/26/17 11:11 Dose: 2 mg Prazosin HCl (Minipress Cap*) 5 mg PO BEDTIME [facility] Last Admin: 11/25/17 21:02 Dose: 5 mg - Discharge Plan Discharge Plan: Inpatient Hospitalization
[2017-11-26] MEDS ORDERED: Haloperidol Decanoate* 50 MG/ML AMP IM SCH (12:00)
[2017-11-26] MEDS: Nicotine Inhaler* 10 MG AMP INH PRN (13:16)
[2017-11-26] MEDS: Prazosin CAP* 5 MG PO SCH (20:17)
[2017-11-26] MEDS: lamoTRIgine TAB(*) 25 MG PO SCH (20:17)
[2017-11-27] MEDS: Nicotine GUM* 2 MG PO PRN ×3 (07:12→16:09)
[2017-11-27] MEDS: Ibuprofen TAB* 600 MG PO PRN ×4 (07:12→23:18)
[2017-11-27] MEDS: Acetaminophen TAB* 325 MG PO PRN ×2 (07:13)
[2017-11-27] MEDS: Albuterol HFA INHALER* 8 gm MDI INH PRN ×3 (07:13→16:57)
[2017-11-27] MEDS: Vitamin THERAPEUTIC TAB PO SCH (08:06)
[2017-11-27 08:22] LABS: ABS Basophils 0 10^3/ul (0-0.2); ABS Eosinophils 0.1 10^3/ul (0-0.6); ABS Lymphocytes 2.1 10^3/ul (1.0-4.8); ABS Monocytes 0.6 10^3/ul (0-0.8); ABS Neutrophils 5.3 10^3/ul (1.5-7.7); ABS Nucleated RBC 0 10^3/ul; Eosinophil % 1.7 % (0-6); Hematocrit 40 % (35-47); Hemoglobin 13.3 g/dl (12.0-16.0); Lymphocyte % 25.4 % (25-47); Mean Corpuscular HGB Conc 33 g/dl (31-36); Mean Corpuscular Hemoglobin 32 pg (27-31); Mean Corpuscular Volume 96 fL (80-97); Nucleated Red Blood Cells % 0; Platelet Count 240 10^3/ul (150-450); Red Blood Count 4.16 10^6/ul (4.00-5.40); Red Cell Distribution Width 13 % (10.5-15); White Blood Count 8.1 10^3/ul (3.5-10.8)
[2017-11-27 08:41] LABS: EGFR Non-African American 85.6 (>60)
--- NOTE | 2017-11-27 10:54 | PN ---
Subjective - Subjective Date of Service: 11/27/17 Service Type: 52537 Hosp care 15 min low complexity Subjective: Julio is better organized today and more reality-focused following her receipt of 75mg of decanoate Haldol yesterday. She tolerating the injection well and denies untoward effects thus far. A review of her labs shows a significant increase in LFTs since admission. She admits to taking acetaminophen daily since admission for sore ribs. The patient is requesting staff pass. She denies SI or HI. Objective - Appearance Appearance: Well Developed/Nourished Dysmorphic Features: No Hygiene: Normal Grooming: Well Kept - Behavior Psychomotor Activities: Normal Exhibits Abnormal Movement: No - Attitude and Relatedness Attitude and Relatedness: Cooperative Eye Contact: Fair - Speech Quality: Unpressured Latencies: Normal Quantity: Appropriate - Mood Patient's Decription of Mood: "Good" - Affect Observed Affect: Good Affect Consistent with: Euthymia - Thought Process Patient's Thought Process: Coherent Thought Content: No Passive Wish, No Suicidal Planning, No Homicidal Ideation, No Paranoid Ideation - Sensorium Experiencing Hallucinations: No, Sensorium is Clear Type of Hallucinations: Visual: No, Auditory: No, Command: No - Level of Consciousness Level of Consciousness: Alert Orientation: Yes Intact, Yes Orientated to Time, Yes Orientated to Place, Yes Orientated to Person - Impulse Control Impulse Control: Tenuous - Insight and Judgement Insight and Judgement: Fair - Group Participation Particating in Group Activities: Yes - Medication Management Medication Management Adherence: Yes Assessment - Assessment Merits Inpatient Hospitalization: Consolidate Improvements, Pending Safe DC Plan Inpatient DSM-V Dx: F31.12 Clinical Impression: 37 y.o. single, white female with a history of bipolar disorder and serial non- adherence with indicated medications for her disorder arrives on involuntary basis, having been brought in by law enforcement for bizarre, disorganized and disruptive behavior in the community in the context of, again, self- discontinuation of medications. Plan - Plan Treatment Plan: Name: JULIO MCCORMACK Birthdate: 1980 [id number] The patient is considerably improved since yesterday when she accepted initiation of haloperidol decanoate 75mg IM q4wks. We are also treating her with prazosin 5mg PO qhs and lamotrigine 25mg PO qhs. Increase lamotrigine to 50mg PO qday and target tomorrow, November 28, for discharge. Will order Hep B and C panel and d/c acetominophen. Continued Medication Management: Different Medication Medications: Current Medications Al Hydrox/Mg Hydrox/Simethicone (Maalox Plus*) 30 ml PO Q4H PRN PRN Reason: INDIGESTION Last Admin: 11/23/17 21:38 Dose: 30 ml Albuterol (Ventolin Hfa Inhaler*) 2 puff INH Q4H PRN PRN Reason: SHORTNESS OF BREATH Last Admin: 11/27/17 07:13 Dose: 2 puff Device (Nicotine Mouth Piece*) 1 each INH .[facility] Last Admin: 11/18/17 19:25 Dose: 1 each Haloperidol (Haldol Tab*) 1 mg PO Q6H PRN PRN Reason: AGITATION Haloperidol Decanoate (Haldol Decanoate*) 75 mg IM Q28D [facility] Last Admin: 11/26/17 12:02 Dose: 75 mg Ibuprofen (Motrin Tab*) 600 mg PO Q6H PRN PRN Reason: PAIN Last Admin: 11/27/17 07:12 Dose: 600 mg Lamotrigine (Lamictal Tab(*)) 50 mg PO BEDTIME [facility] Lorazepam (Ativan Tab(*)) 0.5 mg PO Q6H PRN PRN Reason: AGITATION/ANXIETY/JEREMIAH Last Admin: 11/25/17 10:31 Dose: 0.5 mg Multivitamins (Theragran Tab*) 1 tab PO DAILY [facility] Last Admin: 11/27/17 08:06 Dose: 1 tab Nicotine (Nicotine Inhaler*) 10 mg INH Q2H PRN PRN Reason: CRAVING Last Admin: 11/26/17 13:16 Dose: 10 mg Nicotine Polacrilex (Nicotine Gum*) 2 mg PO Q2H PRN PRN Reason: CRAVING Last Admin: 11/27/17 10:28 Dose: 2 mg Prazosin HCl (Minipress Cap*) 5 mg PO BEDTIME [facility] Last Admin: 11/26/17 20:17 Dose: 5 mg - Discharge Plan Discharge Plan: Outpatient Follow Up Outpatient Program: [facility] Lab Results - Lab Results Lab Results: 11/27/17 11/27/17 11/27/17 07:52 07:52 07:53 WBC 8.1 RBC 4.16 Hgb 13.3 Hct 40 MCV 96 MCH 32 H MCHC 33 RDW 13 Plt Count 240 MPV 8.0 Neut % (Auto) 64.7 Lymph % (Auto) 25.4 [place] % (Auto) 7.7 H Eos % (Auto) 1.7 Baso % (Auto) 0.5 Absolute Neuts (auto) 5.3 Absolute Lymphs (auto) 2.1 Absolute Monos (auto) 0.6 Absolute Eos (auto) 0.1 Absolute Basos (auto) 0 Absolute Nucleated RBC 0 Nucleated RBC % 0 Sodium 137 Potassium 4.0 Chloride 105 Carbon Dioxide 25 Anion Gap 7 BUN 13 Creatinine 0.76 Est GFR ( Amer) 103.6 Est GFR (Non-Af Amer) 85.6 BUN/Creatinine Ratio 17.1 Glucose 100 Hemoglobin A1c 5.3 Calcium 8.9 Total Bilirubin 0.40 AST 58 H ALT 246 H Alkaline Phosphatase 70 Total Protein 6.4 Albumin 4.0 Globulin 2.4 Albumin/Globulin Ratio 1.7 Triglycerides 92 Cholesterol 137 LDL Cholesterol 73 HDL Cholesterol 46.0
[2017-11-27] MEDS: LORazepam TAB(*) 0.5 MG PO PRN ×2 (12:41→23:42)
[2017-11-27] MEDS: Nicotine Inhaler* 10 MG AMP INH PRN (18:07)
[2017-11-27] MEDS: Mouth Piece, Nicotine* 1 EACH CARTRIDGE INH SCH (18:07)
[2017-11-27] MEDS: Prazosin CAP* 5 MG PO SCH (20:06)
[2017-11-27] MEDS ORDERED: lamoTRIgine TAB(*) 25 MG PO SCH (21:00)
[2017-11-28] MEDS: Ibuprofen TAB* 600 MG PO PRN (06:03)
[2017-11-28 08:05] VITALS: BP 117/59
[2017-11-28] MEDS: Albuterol HFA INHALER* 8 gm MDI INH PRN (08:46)
[2017-11-28] MEDS: Vitamin THERAPEUTIC TAB PO SCH (08:46)
[2017-11-28] MEDS: LORazepam TAB(*) 0.5 MG PO PRN (08:48)
[2017-11-28] MEDS: Nicotine GUM* 2 MG PO PRN ×2 (08:48→10:38)
--- NOTE | 2017-11-28 13:36 | DS ---
DATE OF ADMISSION: 11/16/2017. DATE OF DISCHARGE: 11/28/2017. DISCHARGE DIAGNOSES: AXIS I: Bipolar disorder, type 1, severe without psychotic features; PTSD by history. AXIS II: Deferred. CONDITION AT THE TIME OF DISCHARGE: Improved. The patient has accepted initiation of an injectable long-acting antipsychotic medication. Specifically she received the loading dose of Haldol Decanoate , 75 mg IM, q.4 weeks on 11/26/2017. She has tolerated the addition of this medication quite well and we note marked improvements in her thought process, mood and affect. She is much more euthy catrachito, better organized, able to make a coherent account of her follow-up treatment plan. The patient h as been safe on all checks for several days and she has been granted enhanced privileges, including u sing the computer and going outside. At this time, there is no further rationale for involuntary car e. The patient has done well here and is appropriately requesting discharge to the outpatient [facility]. She is agreeable with continuing oral and injectable medications and is similarly agreeable w ith following up at [facility]. She denies suicidal or homicidal ideations and has done so throughout this hospitalization. LABORATORY DATA: Metabolic testing was performed on 11/27/2017 which revealed a hemoglobin A1c of 5. 3 percent, triglycerides 92, total cholesterol 137, LDL cholesterol 73, HDL cholesterol 46.0. DISCHARGE INSTRUCTIONS TO THE PATIENT: A. Medications: She is taking Haloperidol Decanoate 75 mg IM every 28 days. Her next injection kaushik l be due 12/24/2017. She is also taking Lamotrigine 50 mg p.o. at bedtime, Prazosin 5 mg p.o . at bedtime, and Albuterol two puffs inhaled every 4 hours as needed for wheezing. B. Diet: Regular. C. Activities: As tolerated. The patient is a smoker. She is declining our offer of continued yossi otine replacement therapy after discharge. We have referred her to the [facility] in the event that she changes her mind about this. There are no laboratory or d iagnostic studies pending at the time of discharge. D. Follow-up care: The patient will follow-up with the [facility] within one week of discharge. E. Substance abuse follow-up: Nonapplicable. HOSPITAL COURSE - PART A: Reason for admission: The patient is a 37-year-old, single, white female w ith an extensive history of mental illness and multiple prior psychiatric hospitalizations who was re cently discharged from this unit on 10/24/2017 who now returns having been brought in by the police van mccloud to bizarre disorganized and paranoid behavior in the community. She apparently believed that one of her neighbors was planning to shoot her and she also believed that Summer was at war, that people are going to due to chemical warfare and other bizarre persecutory ideas. During her evaluation, she denied most of this, but continued to be hyperverbal, jumping from topic to topic. She appeared to be mistrustful of the cash controller and wanted one of her friends to be present throughout her intera ctions with staff. Her conversation was mostly focused on her recent fall in front of a store two to three days prior to admission as the police were trying to test her for impaired driving. We do not believe that she was drinking alcohol at this time, although her manic behavior probably made law en forcement believe that she was. It appears that the patient was not compliant with the Lurasidone wh ich had been recently started in October of this year during her most recent hospitalization. She compla ined that it made her vomit blood. The patient denied suicidal or homicidal thoughts, denied halluci nations, and was mostly minimizing towards her symptoms. HOSPITAL COURSE - PART B: Psychiatric treatment rendered: The patient was admitted to the [facility] where she was placed on q.15 minute checks for her own safety. She was initially treated on the service of psychiatric nurse practitioner Marilee Monsalve who started her on a trial of Lamotrigine 25 mg nightly and this was ultimately increased to 50 mg nightly. The patient was nonad herent with antipsychotic medications and therefore her case was transferred to the service of Dr. Adrian Thornton. At that time, the plan was to take her to court for treatment over her objection. As we awaited trial, the patient had a change of heart and agreed to accept recommendations for initiati on of antipsychotic injectable therapy. She had tolerated some low doses of Haloperidol orally and t his made us choose Haldol Decanoate which was administered at the 75 mg dose on November 26. T he patient showed a rapid and significant improvement after injectable antipsychotic. She is much mor e reality focused with better eye contact. Speech is no longer pressured or hyperverbal. She appear s to be euthymic with a full affect. The patient dropped her own court request to be release and we mutually decided on a target discharge date of the 28 of November. Ultimately, she did well and was sa fe on all checks, and we feel that she meets criteria to be served in a less restrictive environment. The patient is agreeable with outpatient follow-up in the community and we certainly wish her the b est for a safe and healthy future. [id number]/[facility] #: [id number]
== END 2017-11-28 13:26 | disposition home or self-care (01) | DRG 753 ==
LOC: ED 14:49 → BSU 11-16 17:02
PROVIDERS: ADMIT Psychiatry & Neurology Psychiatry; ATTEND Psychiatry & Neurology Psychiatry
DX: F31.13 Bipolar disorder, current episode manic without psychotic features, severe (principal); F43.10 Post-traumatic stress disorder, unspecified; F43.20 Adjustment disorder, unspecified; G43.909 Migraine, unspecified, not intractable, without status migrainosus; J45.909 Unspecified asthma, uncomplicated; K21.9 Gastro-esophageal reflux disease without esophagitis; F41.9 Anxiety disorder, unspecified; F17.210 Nicotine dependence, cigarettes, uncomplicated; G93.89 Other specified disorders of brain; M54.5 Low back pain; Z88.8 Allergy status to other drugs, medicaments and biological substances; Z88.0 Allergy status to penicillin; Z81.8 Family history of other mental and behavioral disorders; Z87.01 Personal history of pneumonia (recurrent); Z81.1 Family history of alcohol abuse and dependence; Z91.14 Patient's other noncompliance with medication regimen; Z87.820 Personal history of traumatic brain injury
CPT/HCPCS: 36415; 70450; 80053; 80061; 80307; 80320; 80329; 81003; 81015; 83036; 84443; 84702; 85025; 86803; 87086; 87340; 93005; 99222; 99231; 99232; 99238; 99285; A9270-GY; G0480; J1200; J1631; J2060

== ENCOUNTER 2019-05-19 12:09 | Emergency (ER) | payer BC, OTHER ==
[2019-05-19 12:23] VITALS: BP 144/103
--- NOTE | 2019-05-19 12:35 | UC ---
Back Pain HPI - HPI Summary HPI Summary: 38 year old female with PMH + for lower back pain, presents after tripping on carpet 3 days ago, + falling hitting side/ lower back. no head injury, no LOC. Now with left sided rib pain- mild-moderate, lower back pain- severe. Patient states she is unable to move due to pain unless she is taking Motrin, took 800mg this AM. DOes not feel she is able to work due to pain. no loss of bowel/ bladder function. STrenth intact, denies weakness. no difficulty with breathing - History of Current Complaint Chief Complaint: UCGeneralIllness Stated Complaint: TAIL BONE INJURY Time Seen by Provider: 05/19/19 12:34 Hx Obtained From: Patient Hx Last Menstrual Period: 04/04/19 ?: No Onset/Duration: Sudden Onset, Lasting Days - 3 Timing: Constant Severity Initially: Severe Severity Currently: Severe Pain Intensity: 8 Pain Scale Used: 0-10 Numeric Back Pain: Is Discrete @ - lower back, left ribs Character: Sharp, Aching, Spasmodic Aggravating Factor(s): Movement, Lifting, Bending, Walking, Cough Alleviating Factor(s): Rest, OTC Meds - motrin Associated Signs And Symptoms: Positive: Pain with Weight Bearing. Negative: Swelling, Redness, Bruising, Fever, Weakness, Numbness, Tingling, Abdominal Pain , Flank Pain, Bladder Incontinence, Bowel Incontinence, Weight Loss - Allergies/Home Medications Allergies/Adverse Reactions: Allergies Allergy/AdvReac Type Severity Reaction Status Date / Time carbamazepine Allergy Rash And Verified 05/19/19 12:24 Itching chlorpromazine Allergy See Comment Verified 05/19/19 12:24 [From Thorazine] paliperidone [From Invega] Allergy See Comment Verified 05/19/19 12:24 Penicillins Allergy Shortness Verified 05/19/19 12:24 of Breath quetiapine [From Seroquel] Allergy Shortness Verified 05/19/19 12:24 of Breath sumatriptan Allergy Shortness Verified 05/19/19 12:24 of Breath lithium AdvReac See Comment Verified 05/19/19 12:24 PMH/Surg Hx/FS Hx/Imm Hx Previously Healthy: Yes - Surgical History Surgical History: Yes Surgery Procedure, Year, and Place: - 03/11/2010. LEEP- 07/2008 - Family History Known Family History: Positive: Other - Anxiety, depression, alcohol abuse, Non- Contributory - Social History Occupation: Employed Full-time Alcohol Use: None Substance Use Type: None Smoking Status (MU): Current Some Day Smoker Type: Cigarettes Amount Used/How Often: denies currently smoking/ smoked one cigarette one Have You Smoked in the Last Year: Yes When Did the Patient Quit Smoking/Using Tobacco: august 06, 8 years ago - Immunization History Most Recent Influenza Vaccination: 2018 Most Recent Tetanus Shot: 2017 Most Recent Pneumonia Vaccination: unknown Review of Systems All Other Systems Reviewed And Are Negative: Yes Constitutional: Positive: Negative. Negative: Fever, Chills, Fatigue Eyes: Positive: Negative. Negative: Blurred Vision, Diplopia Respiratory: Positive: Negative. Negative: Shortness Of Breath, Cough Physical Exam Triage Information Reviewed: Yes Appearance: Well-Appearing, Well-Nourished, Pain Distress - minimal at rest, moderate with movement Vital Signs: Initial Vital Signs Temp 98 F 05/19/19 12:19 Pulse 91 05/19/19 12:19 Resp 18 05/19/19 12:19 BP 144/103 05/19/19 12:19 Pulse Ox 100 05/19/19 12:19 Vital Signs Reviewed: Yes Eyes: Positive: Conjunctiva Clear Neck: Positive: Supple, Nontender. Negative: Nuchal Rigidity Respiratory: Positive: Chest non-tender, Lungs clear, Normal breath sounds, No respiratory distress, No accessory muscle use. Negative: Respiratory distress, Crackles, Rhonchi, Stridor, Wheezing Abdomen Description: Negative: CVA Tenderness (R), CVA Tenderness (L) Musculoskeletal: Positive: Strength Intact, ROM Intact, No Edema, Other: - patellar reflexes 2+ b/l, sensation intact to light touch b/l, distal to knees. Neurological: Positive: Alert, Muscle Tone Normal, Other: - patellar reflexes 2 + b/l. Psychological Exam: Normal Psychological: Positive: Normal Response To Family Back Pain Course/Dx - Course Course Of Treatment: Radiograph: Forensic Examiner: Calvin Plunkett Daniel, ([id number]) [employer] Business Development Officer: IGGY ( RAYAANCE) Report Date: 05/19/2019 13:19:00 Report Status: Final ====== Start of Report Content Patient Name: JULIO MCCORMACK Medical Record#: [id number] Ordering Physician: Lola LOFTON Acct.#: [id number] : 1980 Age: 38 Sex: F Location: [facility] Exam Date: 05/19/19 1246 ADM Status: REG ER Order Information: SACROILIAC JOINTS 3+ VWS Accession Number: [id number] CPT: 66158 HISTORY: fall 3 days ago, sacral TTP . COMPARISONS: None relevant available at the time of dictation. VIEWS: 4, frontal, bilateral oblique, lateral views of the pelvis. FINDINGS: BONE DENSITY: Normal. BONES: There is no displaced fracture. The sacral arches are intact. 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 ALIGNMENT: There is no dislocation. SOFT TISSUES: Unremarkable. OTHER FINDINGS: There is facet osteoarthritis at L5-S1 with narrowing of the intervertebral disc space. IMPRESSION: NO ACUTE OSSEOUS INJURY OF THE SACRUM AND COCCYX. PLAIN RADIOGRAPHS ARE RELATIVELY INSENSITIVE TO NONDISPLACED FRACTURES OF THE SACRUM AND COCCYX. IF THERE IS PERSISTENT CLINICAL CONCERN FOR SACROCOCCYGEAL OSSEOUS PATHOLOGY, BONE SCANNING MAY BE MORE SENSITIVE <Electronically signed by Calvin Plunkett MD in [place]> 05/19/19 1315 Dictated By: Calvin Plunkett MD Dictated Date/Time: 05/19/19 1311 Transcribed Date/Time: 05/19/19 1311 Copy to: CC:Prashant Rivas MD; Kavitha Sánchez MD; Lola LOFTON Imaging - [facility] - [place] [facility] [address] [address] ph [phone]) ph ([phone]) ph ([phone]) ==== End of Report Content - Steroid taper as directed- 12/16- 30mg 12/17- 20mg 12/18- 20mg 12/19- 10mg - Gentle range of motion exercises as shown. - Motrin as needed for pain, 600mg every 6 hours, increase fluid intake while taking - Flexeril as needed at night to help with muscle spasms. - Work note given x 2 days - Differential Dx/Diagnosis Differential Diagnosis/HQI/PQRI: Epidural Abscess, Fracture, Strain, Sprain Provider Diagnosis: Contusion Discharge ED - Sign-Out/Discharge Documenting (check all that apply): Patient Departure All imaging exams completed and their final reports reviewed: Yes - Discharge Plan Condition: Good Disposition: HOME Prescriptions: predniSONE TAB* [Deltasone 10 MG TAB*] 10 mg PO .SEE TAPER #8 tab Patient Education Materials: Contusion in Adults (ED), Lower Back Exercises (ED ) Forms: *Work Release Referrals: Prashant Rivas MD [Primary Care Provider] - Additional Instructions: - Steroid taper as directed- 12/16- 30mg 12/17- 20mg 12/18- 20mg 12/19- 10mg - Gentle range of motion exercises as shown. - Motrin as needed for pain, 600mg every 6 hours, increase fluid intake while taking - Flexeril as needed at night to help with muscle spasms. - Work note given x 2 days - Billing Disposition and Condition Condition: GOOD Disposition: Home
== END 2019-05-19 13:37 | disposition home or self-care (01) ==
LOC: UCEAST 12:09
DX: S30.0XXA Contusion of lower back and pelvis, initial encounter (principal); Z88.8 Allergy status to other drugs, medicaments and biological substances; Z88.0 Allergy status to penicillin; Z91.09 Other allergy status, other than to drugs and biological substances; W01.0XXA Fall on same level from slipping, tripping and stumbling without subsequent striking against object, initial encounter; Y92.9 Unspecified place or not applicable
CPT/HCPCS: 72202; 99212; G0463

== ENCOUNTER 2020-01-12 08:42 | Inpatient (IN) ==
[2020-01-12] MEDS ORDERED: Haloperidol 5 mg/ml SDV IV/IM 5 MG/ML AMP IM ONE (08:49)
[2020-01-12] MEDS ORDERED: Lorazepam PYXIS KEY PRN (08:49)
[2020-01-12] MEDS ORDERED: diPHENhydraMINE IV 50 MG/ML 1 ml VIAL (BENADRYL) IM ONE (08:49)
[2020-01-12] MEDS ORDERED: LORazepam 2 mg VIAL 1 ml IM ONE (08:49)
[2020-01-12] MEDS ORDERED: Lorazepam PYXIS KEY ONE (09:14)
[2020-01-12 09:17] LABS: Urine Appearance Cloudy; Urine Bilirubin Negative (Negative); Urine Blood 1+ (Negative); Urine Color Yellow; Urine Glucose Negative (Negative); Urine Ketones Negative (Negative); Urine Nitrite Negative (Negative); Urine Protein Negative (Negative); Urine Specific Gravity 1.006 (1.010-1.030); Urine Urobilinogen Negative (Negative)
[2020-01-12 09:29] LABS: Urine Bacteria 1+ (Absent); Urine Red Blood Cell Trace(0-2/hpf) (Absent); Urine Squamous Epithelial Cell Present (Absent); Urine White Blood Cell Absent (Absent)
[2020-01-12 09:33] LABS: Urine Benzodiazepine Screen None Detected (None Detect); Urine Cannabinoids Screen None Detected (None Detect); Urine Opiates Screen None Detected (None Detect)
[2020-01-12 10:34] LABS: ABS Basophils 0.1 10^3/ul (0-0.2); ABS Lymphocytes 1.7 10^3/ul (1.0-4.8); ABS Monocytes 0.7 10^3/ul (0-0.8); ABS Neutrophils 6.1 10^3/ul (1.5-7.7); Eosinophil % 0.6 %; Hematocrit 35 % (35-47); Lymphocyte % 19.9 %; Mean Corpuscular HGB Conc 34 g/dL (31-36); Mean Corpuscular Hemoglobin 33 pg (27-31); Mean Corpuscular Volume 98 fL (80-97); Mean Platelet Volume 7.8 fL (7.4-10.4); Platelet Count 262 10^3/uL (150-450); Red Cell Distribution Width 12 % (10-15); White Blood Count 8.6 10^3/uL (3.5-10.8)
[2020-01-12 10:57] LABS: ALT 55 U/L (7-52); AST 50 U/L (13-39); Albumin 4.1 g/dL (3.2-5.2); Albumin/Globulin Ratio 1.6 (1-3); Alkaline Phosphatase 64 U/L (34-104); Anion Gap 9 mmol/L (2-11); BUN/Creatinine Ratio 10.8 (8-20); Blood Urea Nitrogen 10 mg/dL (6-24); CO2 Carbon Dioxide 22 mmol/L (22-32); Calcium 8.8 mg/dL (8.6-10.3); Chloride 105 mmol/L (101-111); EGFR African American 81.2 (>60); EGFR Non-African American 67.1 (>60); Globulin 2.5 g/dL (2-4); Glucose 86 mg/dL (70-100); Potassium 3.4 mmol/L (3.5-5.0); Sodium 136 mmol/L (135-145); Total Protein 6.6 g/dL (6.4-8.9)
[2020-01-12 11:23] LABS: Acetaminophen < 15 mcg/mL; Alcohol, S < 10 mg/dL (<10); Salicylate < 2.50 mg/dL (<30)
[2020-01-12 11:35] LABS: TSH Ultra Thyroid Stim Horm 1.29 mcIU/mL (0.34-5.60)
[2020-01-12] MEDS ORDERED: Al Hydrox/Mg Hydrox/Simet LIQ 30 ML UDC PO PRN (12:09)
[2020-01-13] MEDS: Nicotine Lozenge mini 2 MG LOZNG.MINI MT PRN ×2 (16:22→19:05)
[2020-01-13] MEDS: Albuterol HFA INHALER 8 gm MDI INH PRN ×2 (16:26→22:19)
[2020-01-14] MEDS: Albuterol HFA INHALER 8 gm MDI INH PRN ×3 (05:31→19:10)
[2020-01-14] MEDS: Nicotine Lozenge mini 2 MG LOZNG.MINI MT PRN ×4 (07:54→21:12)
[2020-01-15] MEDS: Nicotine Lozenge mini 2 MG LOZNG.MINI MT PRN ×7 (02:09→22:25)
[2020-01-15] MEDS: Albuterol HFA INHALER 8 gm MDI INH PRN ×3 (03:13→19:26)
[2020-01-15 08:10] LABS: Albumin 4.2 g/dL (3.2-5.2); Albumin/Globulin Ratio 1.6 (1-3); BUN/Creatinine Ratio 10.5 (8-20); EGFR African American 102.5 (>60); EGFR Non-African American 84.7 (>60); Globulin 2.6 g/dL (2-4); HDL Cholesterol 43.4 mg/dL; Potassium 3.7 mmol/L (3.5-5.0); Total Bilirubin 0.2 mg/dL (0.2-1.0); Total Protein 6.8 g/dL (6.4-8.9)
[2020-01-16] MEDS: Nicotine Lozenge mini 2 MG LOZNG.MINI MT PRN ×4 (06:23→19:09)
[2020-01-16] MEDS: Albuterol HFA INHALER 8 gm MDI INH PRN (06:23)
[2020-01-17] MEDS: Albuterol HFA INHALER 8 gm MDI INH PRN (07:34)
[2020-01-17] MEDS: Nicotine Lozenge mini 2 MG LOZNG.MINI MT PRN ×3 (07:37→12:40)
[2020-01-18] MEDS: Albuterol HFA INHALER 8 gm MDI INH PRN ×3 (08:11→17:19)
[2020-01-18] MEDS: Nicotine Lozenge mini 2 MG LOZNG.MINI MT PRN ×3 (08:13→17:19)
[2020-01-19] MEDS: Nicotine Lozenge mini 2 MG LOZNG.MINI MT PRN ×4 (08:25→22:05)
[2020-01-19] MEDS: Albuterol HFA INHALER 8 gm MDI INH PRN ×2 (11:04→22:05)
[2020-01-20] MEDS: Saline NASAL SPRAY 0.65% BTL BOTH NARES PRN ×2 (00:40→19:28)
[2020-01-20] MEDS: Nicotine Lozenge mini 2 MG LOZNG.MINI MT PRN ×6 (00:40→22:19)
[2020-01-20] MEDS: Albuterol HFA INHALER 8 gm MDI INH PRN (13:14)
[2020-01-21] MEDS: Nicotine Lozenge mini 2 MG LOZNG.MINI MT PRN ×4 (07:41→22:22)
[2020-01-21] MEDS: Albuterol HFA INHALER 8 gm MDI INH PRN (20:23)
[2020-01-22] MEDS: Albuterol HFA INHALER 8 gm MDI INH PRN ×2 (11:04→14:57)
[2020-01-22] MEDS: Saline NASAL SPRAY 0.65% BTL BOTH NARES PRN ×2 (11:05→18:14)
[2020-01-22] MEDS: Nicotine Lozenge mini 2 MG LOZNG.MINI MT PRN ×2 (11:08→13:51)
[2020-01-23] MEDS: Neomycin/Polym/Bacit OPH.OINT 3.5 GM BOTH EYES SCH ×2 (00:31→23:36)
[2020-01-23] MEDS: Albuterol HFA INHALER 8 gm MDI INH PRN (14:57)
[2020-01-23] MEDS: Nicotine Lozenge mini 2 MG LOZNG.MINI MT PRN ×2 (14:58→18:05)
[2020-01-24] MEDS: Saline NASAL SPRAY 0.65% BTL BOTH NARES PRN (08:07)
[2020-01-24] MEDS: Nicotine Lozenge mini 2 MG LOZNG.MINI MT PRN ×5 (08:15→23:44)
[2020-01-24] MEDS: Neomycin/Polym/Bacit OPH.OINT 3.5 GM BOTH EYES SCH (21:45)
[2020-01-25] MEDS: Saline NASAL SPRAY 0.65% BTL BOTH NARES PRN (11:41)
[2020-01-25] MEDS: Nicotine Lozenge mini 2 MG LOZNG.MINI MT PRN ×4 (14:20→23:15)
[2020-01-25] MEDS: Albuterol HFA INHALER 8 gm MDI INH PRN ×2 (14:22→20:45)
[2020-01-25] MEDS: Neomycin/Polym/Bacit OPH.OINT 3.5 GM BOTH EYES SCH (20:37)
[2020-01-26] MEDS: Saline NASAL SPRAY 0.65% BTL BOTH NARES PRN (07:58)
[2020-01-26] MEDS: Albuterol HFA INHALER 8 gm MDI INH PRN ×2 (08:00→22:29)
[2020-01-26] MEDS: Nicotine Lozenge mini 2 MG LOZNG.MINI MT PRN ×3 (14:56→22:31)
[2020-01-26] MEDS: Neomycin/Polym/Bacit OPH.OINT 3.5 GM BOTH EYES SCH (22:19)
[2020-01-27] MEDS: Nicotine Lozenge mini 2 MG LOZNG.MINI MT PRN ×6 (01:12→23:48)
[2020-01-27] MEDS: Albuterol HFA INHALER 8 gm MDI INH PRN ×2 (07:24→11:43)
[2020-01-27] MEDS: Saline NASAL SPRAY 0.65% BTL BOTH NARES PRN (11:43)
[2020-01-27] MEDS: Neomycin/Polym/Bacit OPH.OINT 3.5 GM BOTH EYES SCH (22:47)
[2020-01-28] MEDS: Saline NASAL SPRAY 0.65% BTL BOTH NARES PRN (08:04)
[2020-01-28] MEDS: Albuterol HFA INHALER 8 gm MDI INH PRN (08:04)
[2020-01-28] MEDS: Nicotine Lozenge mini 2 MG LOZNG.MINI MT PRN ×3 (10:36→22:37)
[2020-01-28 11:18] LABS: ABS Basophils 0.1 10^3/ul (0-0.2); ABS Eosinophils 0.1 10^3/ul (0-0.6); ABS Monocytes 0.7 10^3/ul (0-0.8); Eosinophil % 1.4 %; Hematocrit 35 % (35-47); Hemoglobin 12.1 g/dL (12.0-16.0); Lymphocyte % 22.6 %; Mean Corpuscular HGB Conc 34 g/dL (31-36); Mean Corpuscular Hemoglobin 33 pg (27-31); Mean Corpuscular Volume 97 fL (80-97); Mean Platelet Volume 8.1 fL (7.4-10.4); Platelet Count 264 10^3/uL (150-450); Red Blood Count 3.62 10^6 /uL (3.70-4.87); Red Cell Distribution Width 12 % (10-15); White Blood Count 8.9 10^3/uL (3.5-10.8)
[2020-01-29] MEDS: Nicotine Lozenge mini 2 MG LOZNG.MINI MT PRN ×2 (17:51→21:29)
[2020-01-29 18:29] VITALS: BP 119/64
[2020-01-30] MEDS: Saline NASAL SPRAY 0.65% BTL BOTH NARES PRN (07:55)
[2020-01-30] MEDS: Albuterol HFA INHALER 8 gm MDI INH PRN (07:55)
== END 2020-01-30 11:50 | disposition home or self-care (01) | DRG 753 ==
LOC: ED 08:42 → BSU 12:09 → ED 14:39
PROVIDERS: ADMIT Psychiatry & Neurology Psychiatry; ATTEND Psychiatry & Neurology Psychiatry

== ENCOUNTER 2021-09-18 16:36 | Inpatient (IN) ==
[~2021-09-18 16:36] MED LIST: Haloperidol 5 mg/ml SDV IV/IM 5 MG/ML AMP ONE; diPHENhydraMINE IV 50 MG/ML 1 ml VIAL (BENADRYL) ONE
[2021-09-18 17:06] LABS: ABS Basophils 0.1 10^3/ul (0-0.2); ABS Eosinophils 0.1 10^3/ul (0-0.6); ABS Lymphocytes 3.2 10^3/ul (1.0-4.8); ABS Monocytes 0.9 10^3/ul (0-0.8); ABS Neutrophils 9.2 10^3/ul (1.5-7.7); Eosinophil % 0.8 %; Hematocrit 43 % (35-47); Hemoglobin 14.8 g/dL (12.0-16.0); Lymphocyte % 23.4 %; Mean Corpuscular HGB Conc 34 g/dL (31-36); Mean Corpuscular Hemoglobin 33 pg (27-31); Mean Corpuscular Volume 96 fL (80-97); Mean Platelet Volume 8.1 fL (7.4-10.4); Platelet Count 335 10^3/uL (150-450); Red Blood Count 4.49 10^6 /uL (3.70-4.87); Red Cell Distribution Width 13 % (10-15); White Blood Count 13.5 10^3/uL (3.5-10.8)
[2021-09-18] MEDS ORDERED: LORazepam 2 mg VIAL 1 ml ONE (18:24)
[2021-09-18 18:49] LABS: ALT 79 U/L (7-52); AST 20 U/L (13-39); Acetaminophen < 15 mcg/mL; Albumin 4.8 g/dL (3.2-5.2); Albumin/Globulin Ratio 1.7 (1-3); Alcohol, S < 13 mg/dL (<13); Alkaline Phosphatase 101 U/L (35-149); Anion Gap 11 mmol/L (2-11); Blood Urea Nitrogen 8 mg/dL (6-24); CO2 Carbon Dioxide 22 mmol/L (22-32); Calcium 9.8 mg/dL (8.6-10.3); Chloride 105 mmol/L (101-111); Globulin 2.8 g/dL (2-4); Glucose 114 mg/dL (70-100); Potassium 3.9 mmol/L (3.5-5.0); Salicylate < 2.50 mg/dL (<30); Sodium 138 mmol/L (135-145); Total Protein 7.6 g/dL (6.4-8.9); eGFR CKD-EPI 96.3 (>60)
[2021-09-18 18:49] LABS: Urine Benzodiazepine Screen None Detected (None Detect); Urine Cannabinoids Screen None Detected (None Detect); Urine Opiates Screen None Detected (None Detect)
[2021-09-18 18:55] LABS: HCG Pregnancy < 0.60 mIU/mL
[2021-09-18 19:04] LABS: TSH Ultra Thyroid Stim Horm 2.08 mcIU/mL (0.34-5.60)
[2021-09-18] MEDS ORDERED: Al Hydrox/Mg Hydrox/Simet LIQ 30 ML UDC PO PRN (20:09)
[2021-09-19] MEDS: Vitamin THERAPEUTIC TAB PO SCH (12:26)
[2021-09-20 07:20] LABS: HDL Cholesterol 38.5 mg/dL
[2021-09-20] MEDS: Vitamin THERAPEUTIC TAB PO SCH (07:53)
[2021-09-21] MEDS: Vitamin THERAPEUTIC TAB PO SCH (08:51)
[2021-09-22] MEDS: Vitamin THERAPEUTIC TAB PO SCH (08:27)
[2021-09-23] MEDS: Vitamin THERAPEUTIC TAB PO SCH (08:04)
[2021-09-24] MEDS: Vitamin THERAPEUTIC TAB PO SCH (08:10)
[2021-09-25] MEDS: Vitamin THERAPEUTIC TAB PO SCH (08:05)
[2021-09-26] MEDS: Vitamin THERAPEUTIC TAB PO SCH (08:53)
[2021-09-27] MEDS: Vitamin THERAPEUTIC TAB PO SCH (08:57)
[2021-09-28] MEDS: Vitamin THERAPEUTIC TAB PO SCH (07:59)
[2021-09-29] MEDS: Vitamin THERAPEUTIC TAB PO SCH (08:16)
[2021-09-30] MEDS: Vitamin THERAPEUTIC TAB PO SCH (08:27)
[2021-10-01] MEDS: Vitamin THERAPEUTIC TAB PO SCH (08:48)
[2021-10-02] MEDS: Vitamin THERAPEUTIC TAB PO SCH (08:24)
[2021-10-03] MEDS: Vitamin THERAPEUTIC TAB PO SCH (08:28)
[2021-10-03] MEDS: CMCS: guanFACINE 1 mg TAB (NF) PO SCH (21:23)
[2021-10-04] MEDS: Vitamin THERAPEUTIC TAB PO SCH (07:56)
[2021-10-04] MEDS: CMCS: guanFACINE 1 mg TAB (NF) PO SCH ×2 (07:58→21:08)
[2021-10-05] MEDS: CMCS: guanFACINE 1 mg TAB (NF) PO SCH ×2 (09:39→20:44)
[2021-10-05] MEDS: Vitamin THERAPEUTIC TAB PO SCH (09:39)
[2021-10-06] MEDS: CMCS: guanFACINE 1 mg TAB (NF) PO SCH ×2 (08:20→21:54)
[2021-10-06] MEDS: Vitamin THERAPEUTIC TAB PO SCH (08:20)
[2021-10-07] MEDS: Vitamin THERAPEUTIC TAB PO SCH (09:17)
[2021-10-07] MEDS: CMCS: guanFACINE 1 mg TAB (NF) PO SCH (09:17)
[2021-10-08] MEDS: Vitamin THERAPEUTIC TAB PO SCH (08:23)
[2021-10-09] MEDS: Vitamin THERAPEUTIC TAB PO SCH (08:36)
[2021-10-10 07:41] VITALS: BP 110/72
[2021-10-10] MEDS: Vitamin THERAPEUTIC TAB PO SCH (08:53)
== END 2021-10-10 10:30 | disposition home or self-care (01) | DRG 753 ==
LOC: ED 16:36 → BSU 17:45
PROVIDERS: ADMIT Psychiatry & Neurology Addiction Psychiatry; ATTEND Psychiatry & Neurology Psychiatry